=== PATIENT | female | born 1945 | race Caucasian/White ===

== ENCOUNTER 2020-12-01 13:58 | Inpatient (IN) | payer MEDICARE, MEDICAID, SELFPAY ==
[2020-12-01] VITALS (8 sets, daily range): BP systolic 121–156; BP diastolic 66–90; PULSE 74–113; RESP 16–21; TEMP 36.4–37.2; O2SAT 94–98; BMI 21.3; BMI 19.3
--- NOTE | 2020-12-01 14:31 | RAD_ITS ---
STUDY: X-RAY - PELVIS AND LEFT HIP REASON FOR EXAM: Female, 75 years old. Trauma TECHNIQUE: 3 views of the pelvis and hip. COMPARISON: None. FINDINGS: There is a non-specific bowel gas pattern. Calcified bilateral injection granulomas overlying both buttocks. Normal bilateral iliac wings, sacroiliac joints and visualized sacrum. Normal bilateral superior and inferior pubic rami. Normal pubic symphysis. Normal bilateral ischial tuberosities. There is a nondisplaced left intertrochanteric fracture. The patient is status post right intramedullary wally and screw fixation of a right intertrochanteric fracture. RAD/HIP, UNI W/ Pelvis 2-3 Views IMPRESSION: Left intertrochanteric fracture. Not displaced. Electronically Signed: Austen Delatorre MD at 15:26 EDT , Service support ,
--- NOTE | 2020-12-01 14:37 | ED.VIS.LOWEX ---
HPI History of Present Illness Chief Complaint: Lower Extremity Injury Informant: patient Occured/Mechanism Mechanism/Context: Yes blunt trauma Onset/Context/Timing Onset: Today and Hours Context: Sudden Onset Timing: Continuous Quality of Pain: Sharp Current Severity: Moderate Maximum Severity: Moderate Associated Symptoms Associated Symptoms: Negative for Parasthesia, Weakness and Loss of Funtion Narrative Narrative: 75-year-old female who tripped and fell today on the curb injuring her left hip. She is unable to bear weight. Complaining of left hip pain. She denies hitting her head. No LOC. She did hit her left elbow but said it does not cause her much pain. Prior similar symptoms: No Recent Illness/Hospitalization: No PFSH PFSH Home Medications acetaminophen 1,000 mg PO BID PRN 12/01/20 [History Last Taken 11/30/20] hydrochlorothiazide 12.5 mg PO DAILY 12/01/20 [History Last Taken 11/30/20] melatonin 24 mg PO QHS 12/01/20 [History Last Taken 11/30/20] sumatriptan succinate [Imitrex] 100 mg PO Q2H PRN 12/01/20 [History Last Taken Unknown] Allergy/AdvReac Type Severity Reaction Status Date / Time No Known Allergies Allergy Verified 12/01/20 14:51 Social History Smoking Status: Current every day smoker tobacco type: cigarettes ROS ROS ED ROS Narrative Denies recent illness. Review of Systems ROS Unobtainable: Denies due to encephalopathy Constitutional Constitutional ED: Denies fever(s) or subjective Eyes Eyes: Denies change in vision ENT ENT ED: Denies ear pain Cardiovascular Cardiovascular: Denies chest pain Respiratory/Chest Respiratory/Chest: Denies cough or dyspnea Gastrointestinal Gastrointestinal: Denies abdominal pain, diarrhea, nausea or vomiting Genitourinary Genitourinary ED: Denies dysuria Musculoskeletal Musculoskeletal: Denies myalgias Integumentary Denies rash Neurologic Neurologic: Denies headache(s) Psychiatric Psychiatric: Denies depression Endocrine Endocrinology: Denies polyuria Hematologic/Lymphatic Hematologic/Lymphatic: Denies easy bruising Allergic/Immunologic Allergic/Immunologic ED: Denies urticaria EXAM Physical Exam Narrative Exam Narrative: 75-year-old female lying in bed. Family at bedside. Vital signs stable afebrile. HEENT exam atraumatic nontender. Neck nontender trachea midline. No lymphadenopathy. Lungs are clear. Heart regular rhythm no murmur. Chest wall nontender. Abdomen soft nontender. Pelvic girdle intact. Left hip tender to palpation. Rotated and shortened. Consistent with a left hip fracture. The left lower knee and lower leg ankle foot are nontender. She is able dorsi plantar flexion left foot. She had pain with any passive range of motion of left hip. Right lower extremity unremarkable. Upper extremities are nontender normal range of motion no deformity. Minor abrasion left elbow. Back nontender. Neurologically she is awake and alert with no focal motor deficits noted obviously she does not move her left leg. Const Vital Signs: 12/01/20 13:59 12/01/20 14:52 12/01/20 15:42 Temperature 97.5 F L 97.6 F L Temperature Source Oral Oral Pulse Rate 93 96 98 Respiratory Rate 16 20 H 21 H Blood Pressure 121/82 H 138/66 H 132/70 H Blood Pressure Mean 95 90 90 Pulse Ox 96 96 95 Oxygen Delivery Method Room Air Room Air Room Air Positive well nourished and well developed; Negative for obese, cachectic, contractures or unkempt General Appearance ED: well developed; Negative for unkempt, cachectic or contractures Nutritional Appearance: Negative for cachectic or obese HEENT Reports moist mucous membranes normocephalic and atraumatic; Negative for trauma or tenderness Eyes PERRL Neck full ROM and supple Thyroid: Negative for tender Chest Wall inspection of chest normal and palpation of chest normal Resp normal respiratory effort, no retractions and clear to auscultation bilaterally Auscultation: Negative for rales, rhonchi or wheezes Cardio regular rate, regular rhythm, S1 normal heart sound, S2 normal heart sound and no murmurs GI non-tender, non-distended and no masses Auscultation: normoactive bowel sounds Palpation: soft; Negative for tender, guarding or rebound tenderness present Back/Spine no CVA tenderness General Back: Negative for CVA tenderness Cervical Spine: Negative for cervical spine tenderness Thoracic Spine / Upper Back: Negative for thoracic spinal tenderness Lumbar Spine / Lower Back: Negative for lumbar spinal tenderness Extremity Negative for full ROM Extremity Narrative: Tender left hip. Shortened and rotated. General Extremety ED: Negative for cyanosis or edema General Extremity: Negative for cyanosis or edema Neuro oriented x3 and moves all extremities Sensorium / Orientation: alert, oriented to person, oriented to place and oriented to time Motor Exam: strength 5/5 throughout Psych mental status grossly normal Appearance: Negative for unkempt Skin Skin Narrative: Minor left elbow abrasion. Nontender with full range of motion of the elbow. Lesions: no lesions Rashes: no rashes Trauma: abrasion MDM MDM MDM Narrative Medical decision making narrative: 75-year-old female fell appears to have a fracture left hip. X-rays being obtained and preop labs. Will be treated with IV morphine and Zofran. Repeat exam patient is doing well at 3:25 PM. We went over x-ray. I have the hospitalist and orthopedic physicians on page for admission. Lab Data Attestation: I reviewed the patient's lab results. Lab results narrative: CBC shows a white count 9.3. Hemoglobin 11.8 normal platelets. Electrolytes gap 9 BUN 20 creatinine 0.5 glucose 92. Labs: Laboratory Results - last 24 hr 12/01/20 12/01/20 12/01/20 14:40 14:40 14:40 WBC 9.3 RBC 4.01 L Hgb 11.8 L Hct 37.8 MCV 94.3 MCH 29.4 MCHC 31.2 L RDW Std Deviation 47.8 H RDW Coeff of Batsheva 14.0 Plt Count 352 MPV 9.5 Immature Gran % (Auto) 0.600 Neut % (Auto) 74.6 H Lymph % (Auto) 18.[address] [place] % (Auto) 5.7 Eos % (Auto) 0.0 Baso % (Auto) 0.6 Absolute Neuts (auto) 7.0 Absolute Lymphs (auto) 1.73 Nucleated RBC % 0 Sodium 143 Potassium 4.2 Chloride 110 H Carbon Dioxide 24.0 Anion Gap 9 BUN 20 H Creatinine 0.52 L Estim Creat Clear Calc 31.92 Est GFR (MDRD) Af Amer 146 Est GFR (MDRD) Non-Af 121 BUN/Creatinine Ratio 38.2 H Glucose 92 Calcium 8.1 L Blood Type Cancelled Antibody Screen Cancelled 12/01/20 15:00 WBC RBC Hgb Hct MCV MCH MCHC RDW Std Deviation RDW Coeff of Batsheva Plt Count MPV Immature Gran % (Auto) Neut % (Auto) Lymph % (Auto) [place] % (Auto) Eos % (Auto) Baso % (Auto) Absolute Neuts (auto) Absolute Lymphs (auto) Nucleated RBC % Sodium Potassium Chloride Carbon Dioxide Anion Gap BUN Creatinine Estim Creat Clear Calc Est GFR (MDRD) Af Amer Est GFR (MDRD) Non-Af BUN/Creatinine Ratio Glucose Calcium Blood Type O POSITIVE Antibody Screen NEGATIVE Radiography Diagnostic Testing: Clinical Impression(s) from Imaging Studies Hip/Pelvis X-Ray 12/01/20 14:31 IMPRESSION: Left intertrochanteric fracture. Not displaced. Electronically Signed: Austen Delatorre MD at 15:26 EDT , Service support , Chest X-Ray 12/01/20 15:13 IMPRESSION: Findings suggestive of early infiltrate in the right upper lobe. Electronically Signed: Austen Delatorre MD at 15:25 EDT , Service support , Left hip and pelvis x-ray interpreted by myself shows angulated left intertroch fracture. 3 views. Rhythm Strip Rhythm Strip: Sinus Rhythm Rate: 99 Ectopy: None EKG Initial EKG: Attestation: I personally reviewed and interpreted this EKG as follows: Interpretation: Sinus Rhythm and No Acute Injury Pattern Comments: Normal sinus rhythm rate is 99 no acute signs of ND or ischemia. Discharge Plan Dx/Rx/DC Orders Clinical Impression: Fall, Closed fracture of left hip Disposition Disposition: Acute Care Hospital [facility]
[2020-12-01] MEDS: morphine 8 MG/ML Syringe 6 MG IV ×2 (14:48→16:08)
[2020-12-01] MEDS: Ondansetron 4 MG/2 ML Vial IV ×3 (14:48→23:58)
--- NOTE | 2020-12-01 14:49 | NURSING ---
T AND S NEEDS REDRAWN. RN AWARE
[2020-12-01 14:52] LABS: Absolute Lymphocyte Count 1.73 X10^3/uL (0.83-4.51); Basophil# 0.06 X10^3/uL; Basophil% 0.6 % (0-1); Hematocrit 37.8 % (37-47); Hemoglobin 11.8 g/dL (12.0-15.0); Lymphocyte # 1.73 X10^3/ul (0.83-4.51); Lymphocyte % 18.5 % (19-41); Mean Corp Hgb Conc 31.2 g/dL (32-36); Mean Corpuscular Hgb 29.4 pg (27.0-32.0); Mean Corpuscular Volume 94.3 fL (81-99); Mean Platelet Vol. 9.5 fl (6.2-12.0); Monocyte# 0.53 X10^3/uL; Monocyte% 5.7 % (0-10); NRBC Flagged by Analyzer 0 % (0-5); Neutrophil # 6.95 X10^3/uL (2.7-7.7); Neutrophil % 74.6 % (47-70); Platelet Count 352 K/mm3 (150-450); RBC Distribution Width SD 47.8 fl (35.1-43.9); Red Blood Count 4.01 M/mm3 (4.2-5.4); White Blood Count 9.3 K/mm3 (4.4-11.0)
[2020-12-01 15:02] LABS: Anion Gap 9 (5-15); BUN 20 mg/dL (7-18); BUN/Creat Ratio 38.2 RATIO (10-20); Calcium,Total 8.1 mg/dL (8.5-10.1); Chloride 110 mmol/L (98-107); Creatinine, Serum 0.52 mg/dL (0.55-1.02); EST Glomerular Filtration Rate 121 mL/min (>60); Est Glom Filt Rate - Afr Amer 146 mL/min (>60); Estimated Creatinine Clearance 31.92 ml/min; Glucose 92 mg/dL (74-106); Potassium 4.2 mmol/L (3.5-5.1); Sodium Level 143 mmol/L (136-145)
--- NOTE | 2020-12-01 15:13 | RAD_ITS ---
STUDY: X-RAY CHEST REASON FOR EXAM: Female, 75 years old. Preoperative evaluation. TECHNIQUE: Single AP portable view of the chest. COMPARISON: None. FINDINGS: EKG electrodes are seen. A left-sided portacatheter is seen with the tip at the junction of the superior vena cava and right atrium. EKG electrodes are seen. Focal density is seen in the right lung apex. This may represent focal infiltrate. There is no demonstrated pleural abnormality. Normal size heart. Normal mediastinum and henry. Normal visualized pulmonary arteries. There is atherosclerotic calcification of the aortic arch with tortuosity. Normal visualized thoracic spine. Deformity of the proximal right humerus suggestive of a healed fracture. Surgical clips are seen in the epigastric region and mid abdomen. A filter is seen within the inferior vena cava. RAD/Chest 1 View IMPRESSION: Findings suggestive of early infiltrate in the right upper lobe. Electronically Signed: Austen Delatorre MD at 15:25 EDT , Service support ,
--- NOTE | 2020-12-01 15:24 | NURSING ---
DR COTTO PAGED HOSPISTALIST PAGED
--- NOTE | 2020-12-01 15:31 | NURSING ---
MED SURG AUDIE FALL, LT HIP FX, HX TIA
--- NOTE | 2020-12-01 15:34 | EKG12_ITS ---
Test Reason : FALL Blood Pressure : / mmHG Vent. Rate : 099 BPM Atrial Rate : 099 BPM P-R Int : 110 ms QRS Dur : 074 ms QT Int : 350 ms P-R-T Axes : 073 059 049 degrees QTc Int : 449 ms Sinus rhythm with short TX Otherwise normal ECG Confirmed by DEANNE PENG, ROBERT ([id number]), video effects editor [address] ([id number]) on 12/03/2020 9:27:46 AM Referred By: KRAIG Confirmed By:ROBERT ALICEA MD
--- NOTE | 2020-12-01 16:44 | RAD_ITS ---
STUDY: X-RAY - LEFT FEMUR REASON FOR STUDY: Female, 75 years old. Fracture, after bucks traction placed -- AP and lateral femur TECHNIQUE: 2 view(s) of the femur. COMPARISON: Comparison is made with prior examination done earlier today. FINDINGS: Nondisplaced left intertrochanteric fracture. Stable examination. Soft tissue swelling. RAD/Femur Min 2 Views IMPRESSION: Nondisplaced left intertrochanteric fracture. Soft tissue swelling. Electronically Signed: Austen Delatorre MD at 9:19 EDT , Service support ,
--- NOTE | 2020-12-01 17:37 | HP.PCM.HOS_ITS ---
HPI - General General Date of Admission: 12/01/20 Date of Service: 12/01/20 Chief Complaint: Left hip pain status post mechanical fall HPI Narrative ERIC HALL, is a 75 F who presented to [facility] on 12/01[facility]2020 with a chief complaint of left hip pain. She states that earlier today she tripped and fell on a curb injuring her left hip. Immediately afterward she was unable to bear weight and was brought to the emergency department. She denied hitting her head and had no loss of consciousness. She did hit her left elbow but indicated it did not cause her much pain and states she only has a scrape. Her vital signs in the emergency department show that she is afebrile with elevated blood pressure and tachycardia. Her respiratory rate and oxygen saturations are normal on room air. Her CBC shows a mild anemia with a hemoglobin of 11.8. Her BMP is relatively normal. X-ray showed a possible early infiltrate in the right upper lobe but patient has no respiratory symptoms at all. She does have a history of tobacco abuse however. Her EKG is unremarkable. Her hip left hip x-ray shows an intertrochanteric fracture that is nondisplaced. [facility] Medical History (Updated 12/01/20 @ 17:[address] Yael Beckford DO) Chronic edema Macular degeneration Migraine aura without headache Osteoporosis Prolapsed, intestine Tobacco abuse Home Medications acetaminophen 1,000 mg PO BID PRN 12/01/20 [History Last Taken 11/30/20] hydrochlorothiazide 12.5 mg PO DAILY 12/01/20 [History Last Taken 11/30/20] melatonin 24 mg PO QHS 12/01/20 [History Last Taken 11/30/20] sumatriptan succinate [Imitrex] 100 mg PO Q2H PRN 12/01/20 [History Last Taken Unknown] Allergy/AdvReac Type Severity Reaction Status Date / Time No Known Allergies Allergy Verified 12/01/20 14:51 Family History (Updated 12/01/20 @ 17:[address] Yael Beckford DO) Other Diabetes Heart disease Hypertension Surgical History H/O resection of stomach History of appendectomy Status post fusion of wrist Status post hip surgery Social History (Updated 12/01/20 @ 17:[address] Yael Beckford, DO) Smoking Status: Current every day smoker tobacco type: cigarettes Years smoked: 20 alcohol intake: never substance use type: does not use ROS Constitutional Constitutional: Denies anorexia, change in weight, chills, fatigue, fever(s), malaise, night sweats, weakness or other Eyes Eyes: Denies blurry vision, change in eye color, change in vision, discharge from eye(s), double vision, erythema, eye pain, loss of vision or other ENT HEENT: Denies abnormal hearing, dysphagia, ear pain, epistaxis, headache(s), hearing loss, nasal congestion, nasal discharge, post nasal drip, sinus pressure, sore throat or other Cardiovascular Cardiovascular: Denies chest pain, claudication, dyspnea on exertion, edema, lightheadedness, orthopnea, palpitations, paroxysmal nocturnal dyspnea, rapid heart rate, syncope or other Respiratory/Chest Respiratory/Chest: Denies cough, dyspnea, excessive phlegm production, hemoptysis, productive cough, shortness of breath at rest, shortness of breath with exertion, wheezing or other Gastrointestinal Gastrointestinal: Denies abdominal pain, coffee ground emesis, constipation, diarrhea, dyspepsia, hematemesis, hematochezia, loose stools, melena, nausea, vomiting or other Genitourinary Genitourinary: Denies burning urination, difficulty urinating, dysuria, hematuria, nocturia, urinary frequency, urinary hesitancy, urinary incontinence, urinary urgency or other Musculoskeletal Musculoskeletal: Reports joint pain and joint stiffness; Denies arthralgias, back pain, joint swelling, myalgias, neck pain or other Neurologic Neurologic: Denies abnormal gait, abnormal speech, confusion, disequilibrium, dizziness, focal weakness, headache(s), numbness, paresthesias, seizure-like activity, seizures, syncope, tingling, tremor(s) or other Psychiatric Psychiatric: Denies anxiety, depression, homicidal ideation, suicidal ideation or other Endocrine Endocrinology: Reports other Details: Brittle bones Hematologic/Lymphatic Hematologic/Lymphatic: Denies anemia, easy bleeding, easy bruising, lymphadenopathy or other Allergic/Immunologic Allergic/Immunologic: Denies rhinitis, hives, eczemia, asthma or other Vital Signs Vital Signs Vital Signs: 12/01/20 13:59 12/01/20 14:52 12/01/20 15:42 Temperature 97.5 F L 97.6 F L Temperature Source Oral Oral Pulse Rate 93 96 98 Respiratory Rate 16 20 H 21 H Blood Pressure 121/82 H 138/66 H 132/70 H Blood Pressure [BP] Blood Pressure Mean 95 90 90 Blood Pressure Mean [BP] Blood Pressure Source [BP] Blood Pressure Position [BP] Blood Pressure Location [BP] Pulse Ox 96 96 95 Oxygen Delivery Method Room Air Room Air Room Air 12/01/20 16:28 12/01/20 17:00 Temperature 97.6 F L Temperature Source Oral Pulse Rate 74 105 H Respiratory Rate 16 16 Blood Pressure 128/66 H Blood Pressure [BP] 156/90 H Blood Pressure Mean 86 Blood Pressure Mean [BP] 112 Blood Pressure Source [BP] Monitor Blood Pressure Position [BP] Semi-Fowlers Blood Pressure Location [BP] Right Arm Pulse Ox 94 98 Oxygen Delivery Method Room Air Room Air Weight Weight: 37.648 kg Body Mass Index (BMI) 19.3 Physical Exam Const alert, oriented x3 and no apparent distress Constitutional Narrative: Thin elderly white female who appears much older than stated age, lying in bed, appears comfortable at this time lying flat General Appearance: cooperative HEENT normocephalic, head/scalp atraumatic, hearing grossly normal bilaterally and moist oral mucous membranes HEENT Narrative: Dentures in place, Mallampati 2, no thrush Eyes PERRL, EOMs intact bilaterally and conjunctivae normal Eyes Narrative: No scleral icterus Neck no lymphadenopathy, supple, no JVD and no carotid bruits Resp normal respiratory effort, no retractions, no use of accessory muscles and clear to auscultation bilaterally Resp Narrative: Diffusely diminished but clear Auscultation: Negative for crackles, rales, rhonchi or wheezes Cardio regular rate, regular rhythm, S1 normal heart sound, S2 normal heart sound, no murmurs, no rub, no gallops, no clicks and no JVD GI normal to inspection, nondistended, normoactive bowel sounds, soft to palpation, non-tender and non-distended; Negative for hepatosplenomegaly Extremity no clubbing, cyanosis or edema Extremity Narrative: Left lower extremity is shortened and externally rotated Peripheral Pulses: Yes pulses 2+ throughout Skin skin turgor normal, no jaundice, no petechiae and no mottling Skin Narrative: Abrasion left elbow-superficial Neuro oriented x3, CN's II-XII intact bilaterally and no focal motor deficits Neuro Narrative: Moves all extremities except left lower extremity secondary to pain Sensorium / Orientation: awake, alert, oriented to person, oriented to place and oriented to time Speech: speech normal Psych affect normal Results Lab / Micro Data Attestation: I reviewed the patient's lab results. Result Diagrams: 12/01/20 14:40 12/01/20 14:40 Labs: Laboratory Results - last 24 hr 12/01/20 14:40: WBC 9.3, RBC 4.01 L, Hgb 11.8 L, Hct 37.8, MCV 94.3, MCH 29.4, MCHC 31.2 L, RDW Std Deviation 47.8 H, RDW Coeff of Batsheva 14.0, Plt Count 352, MPV 9.5, Immature Gran % (Auto) 0.600, Neut % (Auto) 74.6 H, Lymph % (Auto) 18.5 L, [place] % (Auto) 5.7, Eos % (Auto) 0.0, Baso % (Auto) 0.6, Absolute Neuts (auto) 7.0, Absolute Lymphs (auto) 1.73, Nucleated RBC % 0 12/01/20 14:40: Sodium 143, Potassium 4.2, Chloride 110 H, Carbon Dioxide 24.0, Anion Gap 9, BUN 20 H, Creatinine 0.52 L, Estim Creat Clear Calc 31.92, Est GFR (MDRD) Af Amer 146, Est GFR (MDRD) Non-Af 121, BUN/Creatinine Ratio 38.2 H, Glucose 92, Calcium 8.1 L 12/01/20 14:40: Blood Type Cancelled, Antibody Screen Cancelled 12/01/20 15:00: Blood Type O POSITIVE, Antibody Screen NEGATIVE Rhythm Strip Rhythm Strip: Sinus Rhythm Rate: 99 Ectopy: None Radiology Impression Hip/Pelvis X-Ray 12/01/20 14:31 IMPRESSION: Left intertrochanteric fracture. Not displaced. Electronically Signed: Austen Delatorre MD at 15:26 EDT , Service support , Chest X-Ray 12/01/20 15:13 IMPRESSION: Findings suggestive of early infiltrate in the right upper lobe. Electronically Signed: Austen Delatorre MD at 15:25 EDT , Service support , Assessment & Plan Assessment/Plan (1) Fall: (2) Closed fracture of left hip: (3) Anemia: PLAN: Left hip intertrochanteric fracture secondary to mechanical fall/trauma -Consult orthopedic surgery -N.p.o. after midnight -IV fluids to start at 6 AM LR at 70 cc/h -Pain management -Bowel regimen -PT/OT consultation after surgery -Check vitamin D level -Patient with a recent right hip fracture status post ORIF and patient did well postoperatively -Patient lives alone and has no family to help take care of her--> will likely need placement at discharge -Preop PT EKG shows no ST-T wave changes consistent with ischemia and a relatively normal EKG -At risk for malnutrition -P.o. intake has been for over the last couple days -Surgical risk calculator is not working at this time and will need to be calculated possibly tomorrow morning -Preop nutritional supplements Chest x-ray abnormality -Check CT of the chest--> chest x-ray is suggestive of a right upper lobe infiltrate but patient has no signs or symptoms consistent with pneumonia -Back obese history Mild anemia -Baseline hemoglobin is unknown -Hemoglobin on admission was 11.8 -Suspect some drop during admission secondary to hemodilution in surgery Chronic edema -Patient's dates she takes hydrochlorothiazide for this -Denies history of hypertension -We will hold and monitor blood pressure and volume status Insomnia -Continue melatonin History of migraine headaches -Takes Imitrex will hold at this time but could make available if headache develops DVT prophylaxis -Heparin twice daily CODE STATUS -Full code Charges/Coding Visit Charges Inpatient E&M: 52020 Init Hosp L3
[2020-12-01] MEDS: oxyCODONE 5 MG Tablet PO (18:17)
--- NOTE | 2020-12-01 18:35 | CT_ITS ---
STUDY: CT CHEST WITHOUT CONTRAST REASON FOR EXAM: Female, 75 years old. MORALES abnormality on CXR RADIATION DOSAGE (If Supplied By Facility): CTDIvol = ( 6.04 ) mGy, DLP = ( 170.66 ) mGycm TECHNIQUE: Transaxial imaging was performed without the administration of intravenous contrast material. Individualized dose optimization techniques were used for this CT. COMPARISON: None. FINDINGS: The lungs are hyperaerated. Apical scarring/atelectasis. Probable left basilar scarring/atelectasis. 7 mm lingular nodular density. There is a right upper lobe consolidation. Normal heart and pericardium. Normal mediastinum. Normal hilar regions. Normal unenhanced pulmonary arteries. Normal aorta arch and descending thoracic aorta. Exaggerated thoracic kyphosis. There is no demonstrated abnormality of the visualized upper abdomen. CT/Chest without Contrast IMPRESSION: Hyperaeration. Right upper lobe consolidation. Bilateral scarring/atelectasis. Small lingular nodular density. Electronically Signed: Jadon Hamilton DO at 20:56 EDT Tel [phone], Service support ,
[2020-12-01] MEDS: Morphine 2 MG/ML Syringe IV ×2 (20:48→23:50)
[2020-12-01] MEDS: 0.9% Saline Lock 10 ML Syringe IV ×2 (21:00→23:51)
[2020-12-01] MEDS: Heparin Injection (Vial) 5,000 UNIT/ML VIAL 5000 UNIT SC (21:06)
[2020-12-01] MEDS: MELATONIN 3 MG TABLET PO (21:38)
[2020-12-02] VITALS (15 sets, daily range): BP systolic 117–174; BP diastolic 53–96; PULSE 94–123; RESP 16–20; TEMP 36.5–37.3; O2SAT 90–100; BMI 19.3
[2020-12-02] MEDS: Morphine 2 MG/ML Syringe IV ×3 (02:42→19:59)
[2020-12-02] MEDS: 0.9% Saline Lock 10 ML Syringe IV ×2 (02:42→05:52)
[2020-12-02] MEDS: Lactated Ringers 1,000 ML 70 ML IV (05:26)
[2020-12-02] MEDS: Ondansetron 4 MG/2 ML Vial IV ×2 (05:52→16:42)
[2020-12-02 06:19] LABS: Absolute Neutrophil Count 8.8 X10^3/uL (2.0-7.7); Basophil# 0.02 X10^3/uL; Basophil% 0.2 % (0-1); Hematocrit 33.3 % (37-47); Hemoglobin 10.5 g/dL (12.0-15.0); Lymphocyte % 8.6 % (19-41); Mean Corp Hgb Conc 31.5 g/dL (32-36); Mean Corpuscular Hgb 29.7 pg (27.0-32.0); Mean Corpuscular Volume 94.3 fL (81-99); Mean Platelet Vol. 9.2 fl (6.2-12.0); Monocyte# 0.67 X10^3/uL; Monocyte% 6.4 % (0-10); NRBC Flagged by Analyzer 0 % (0-5); Neutrophil # 8.81 X10^3/uL (2.7-7.7); Neutrophil % 84.4 % (47-70); Platelet Count 323 K/mm3 (150-450); RBC Distribution Width CV 13.9 % (11.6-14.6); RBC Distribution Width SD 47.6 fl (35.1-43.9); Red Blood Count 3.53 M/mm3 (4.2-5.4); White Blood Count 10.4 K/mm3 (4.4-11.0)
[2020-12-02 06:51] LABS: Prothrombin Time (Protime)PT. 12.6 SECONDS (11.7-14.9)
[2020-12-02 06:52] LABS: ALB/GLOB Ratio 0.7 RATIO (0.9-2.4); AST(SGOT) 15 U/L (15-37); Alanine Aminotransfer ALT/SGPT 15 U/L (13-56); Albumin, Serum 2.4 g/dL (3.2-5.0); Alkaline Phosphatase 113 U/L (45-117); Anion Gap 8 (5-15); BUN 15 mg/dL (7-18); BUN/Creat Ratio 42.4 RATIO (10-20); Calcium,Total 7.9 mg/dL (8.5-10.1); Chloride 108 mmol/L (98-107); Creatinine, Serum 0.35 mg/dL (0.55-1.02); EST Glomerular Filtration Rate 190 mL/min (>60); Est Glom Filt Rate - Afr Amer 230 mL/min (>60); Estimated Creatinine Clearance 28.89 ml/min; Globulin 3.3 g/dL (2.2-4.2); Glucose 126 mg/dL (74-106); Phosphorus 3.3 mg/dL (2.5-4.9); Potassium 4.1 mmol/L (3.5-5.1); Protein, Total 5.7 g/dL (6.4-8.2); Sodium Level 141 mmol/L (136-145); Thyroid Stim Hormone (TSH) 2.08 uIU/mL (0.358-3.74)
[2020-12-02 06:52] LABS: Partial Thromboplast Time 32.2 Seconds (24.1-36.2)
--- NOTE | 2020-12-02 08:34 | NURSING ---
EVELIN Hernandez at [facility]. They provide home care to the patient. Relayed admission date and reason for admission and possible surgery. Mary states they currently have home health aids in the home 3x week but would be able to provide fci, PT and OT upon discharge if needed. her phone number is [phone]
[2020-12-02] MEDS: hydrALAZINE 20 MG/ML Vial 10 MG IV (09:07)
[2020-12-02 09:45] LABS: Vitamin D,25 Hydroxy 9.7 ng/mL
[2020-12-02] MEDS: proCHLORPERazine 10 MG/2 ML Vial 5 MG IV (10:38)
--- NOTE | 2020-12-02 11:16 | CASEMGMT ---
RN CM Assessment Introduced role of RN CM to patient. Patient is alert, oriented and able to participate in RN CM Assessment. Care providers, pharmacy, and demographics verified. Admit Dx: Left Intertrochanteric Fx Re-Admit: No Barriers/Issues: Patient lives alone. All her children and relatives are . Lack of support system. Does have friends. PCP: Charley Bennett Specialists: None Preferred Pharmacy: [facility] Insurance: [email or web address] ([email or web address]) [facility] Rx Benefit: Yes LNOK: Friend Dinora Stephen LW/HPOA: None. Patient would like to complete AD on this admission. Notified social contact worker Sommer Burns Living Arrangements: Lives alone in a [facility], 4 steps to enter home. ADL?s: Ambulate wit straight cane, Independent with dressing, cooking, managing meds and transportation-drives. Does get Meals on Wheels 3x/week. Has an Aide 3x/week to assist with house keeping and bathing through [facility] [place], Jamee [phone] (They do have Skilled PT/OT) Transportation: Patient drives. If able to get in private vehicle after surgery and time of DC- can ask a friend to take her, if not will have to have transportation arranged. DME: Straight cane, 2ww, BSC, SC x2, Hospital bed, Grab bars in bathroom. HHC: Past in July. Cannot recall agency name. SNF: Past at [facility]. In network SNF list provided with medicare star ratings. Patient states that she would like to go back to [facility] as her preference. Updated social contact worker Sommer Burns and provided two other SNF in network for patient that is in [place] as a back up to discuss with patient if [facility] unable to accept. Goal: SNF ([facility] in [place], [place]). DC PLAN: SNF. HAYLEY Pinon
--- NOTE | 2020-12-02 11:32 | PCM.PN.HOSP ---
Documented by User: Snow Jackson FABRICATION WELDER, FABRICATION WELDER-C 12/02/20 11:56 Subjective Subjective Patient seen and examined. Reports pain with movement, otherwise comfortable. Reports persistent nausea, dry heaving. Objective Data Objective Data Vital Signs: Vital Signs Temp Pulse Resp BP Pulse Ox 98.5 F 114 H 16 127/69 H 97 12/02/20 09:03 12/02/20 10:27 12/02/20 10:27 12/02/20 10:27 12/02/20 10:27 Oxygen Delivery Method Room Air Weight: 83 lb Body Mass Index (BMI) 19.3 Intake & Output: Intake and Output for Last 24 Hours 11/30/20 12/01/20 12/02/20 23:59 23:59 23:59 Intake Total 75 / 75 Output Total 200 / 200 Balance -125 / -125 Lab / Micro Data Result Diagrams: 12/02/20 06:17 12/02/20 06:17 Labs: Laboratory Results - last 24 hr 12/01/20 14:40: WBC 9.3, RBC 4.01 L, Hgb 11.8 L, Hct 37.8, MCV 94.3, MCH 29.4, MCHC 31.2 L, RDW Std Deviation 47.8 H, RDW Coeff of Batsheva 14.0, Plt Count 352, MPV 9.5, Immature Gran % (Auto) 0.600, Neut % (Auto) 74.6 H, Lymph % (Auto) 18.5 L, Page % (Auto) 5.7, Eos % (Auto) 0.0, Baso % (Auto) 0.6, Absolute Neuts (auto) 7.0, Absolute Lymphs (auto) 1.73, Nucleated RBC % 0 12/01/20 14:40: Sodium 143, Potassium 4.2, Chloride 110 H, Carbon Dioxide 24.0, Anion Gap 9, BUN 20 H, Creatinine 0.52 L, Estim Creat Clear Calc 31.92, Est GFR (MDRD) Af Amer 146, Est GFR (MDRD) Non-Af 121, BUN/Creatinine Ratio 38.2 H, Glucose 92, Calcium 8.1 L 12/01/20 14:40: Blood Type Cancelled, Antibody Screen Cancelled 12/01/20 15:00: Blood Type O POSITIVE, Antibody Screen NEGATIVE 12/02/20 06:17: WBC 10.4, RBC 3.53 L, Hgb 10.5 L, Hct 33.3 L, MCV 94.3, MCH 29.7, MCHC 31.5 L, RDW Std Deviation 47.6 H, RDW Coeff of Batsheva 13.9, Plt Count 323, MPV 9.2, Immature Gran % (Auto) 0.400, Neut % (Auto) 84.4 H, Lymph % (Auto) 8.6 L, Page % (Auto) 6.4, Eos % (Auto) 0.0, Baso % (Auto) 0.2, Absolute Neuts (auto) 8.8 H, Absolute Lymphs (auto) 0.90, Nucleated RBC % 0 12/02/20 06:17: PT Cancelled, INR Cancelled, APTT Cancelled 12/02/20 06:17: Sodium 141, Potassium 4.1, Chloride 108 H, Carbon Dioxide 25.0, Anion Gap 8, BUN 15, Creatinine 0.35 L, Estim Creat Clear Calc 28.89, Est GFR (MDRD) Af Amer 230, Est GFR (MDRD) Non-Af 190, BUN/Creatinine Ratio 42.4 H, Glucose 126 H, Calcium 7.9 L, Phosphorus 3.3, Total Bilirubin 0.30, AST 15, ALT 15, Alkaline Phosphatase 113, Total Protein 5.7 L, Albumin 2.4 L, Globulin 3.3, Albumin/Globulin Ratio 0.7 L, TSH 2.08 12/02/20 06:17: Vitamin D 25-Hydroxy 9.7 12/02/20 06:35: PT 12.6, INR 1.0, APTT 32.2 Micro: Microbiology 12/01/20 21:50 Nasal Secretion SARS-CoV-2 Antigen (Rapid) - Final Radiography Diagnostic Testing: Radiology Impression Hip/Pelvis X-Ray 12/01/20 14:31 IMPRESSION: Left intertrochanteric fracture. Not displaced. Electronically Signed: Austen Delatorre MD at 15:26 EDT , Service support , Chest X-Ray 12/01/20 15:13 IMPRESSION: Findings suggestive of early infiltrate in the right upper lobe. Electronically Signed: Austen Delatorre MD at 15:25 EDT , Service support , Femur X-Ray 12/01/20 16:44 IMPRESSION: Nondisplaced left intertrochanteric fracture. Soft tissue swelling. Electronically Signed: Austen Delatorre MD at 9:19 EDT , Service support , Chest CT 12/01/20 18:35 IMPRESSION: Hyperaeration. Right upper lobe consolidation. Bilateral scarring/atelectasis. Small lingular nodular density. Electronically Signed: Jadon Hamilton DO at 20:56 EDT Tel [phone], Service support , Rhythm Strip Rhythm Strip: Sinus Rhythm Rate: 99 Ectopy: None Physical Exam Const alert, oriented x3 and no apparent distress Orientation / Consciousness: awake, oriented to person, oriented to place and oriented to time Nutritional Appearance: cachectic HEENT normocephalic Mouth: dry mucous membranes Eyes PERRL, EOMs intact bilaterally and conjunctivae normal Neck no lymphadenopathy Resp clear to auscultation bilaterally Auscultation: diminished lung sounds Cardio regular rate, regular rhythm and no murmurs Peripheral Pulses: pulses 2+ throughout GI normal to inspection, nondistended, normoactive bowel sounds, non-tender and non-distended Extremity normal to inspection Skin no rashes or lesions noted Lesions: no lesions Rashes: no rashes Trauma: no lacerations or abrasions Neuro CN's II-XII intact bilaterally, no focal motor deficits, no sensory deficits noted and deep tendon reflexes 2+ bilaterally Psych mental status grossly normal and affect normal Assessment & Plan Assessment/Plan (1) Closed fracture of left hip: PLAN: 1. Traumatic left hip intertrochanter fracture secondary to mechanical fall-orthopedic medicine consulted. PT/OT. Will likely need SNF/rehab at discharge. Case management consult. Preoperative EKG without ST-T changes. Surgical risk calculator not working at this time however risk factors and EKG reviewed, okay to proceed with surgical invention from medical standpoint. 2. Severe protein calorie malnutrition-as evidenced by muscle loss, fat loss, cachectic appearance, 37 kg. Dietitian consult. 3. History of migraines-on as needed Imitrex. 4. Hypertension/chronic edema-on HCTZ. Hold at this time. As needed hydralazine. 5. Vitamin D deficiency/evidence of osteoporosis-initiate vitamin D 50,000 units once weekly for 6 to 8 weeks, then transition to 800 units daily. Begin calcium supplementation as well. Follow-up lab as outpatient. Recommend DXA as outpatient with likely initiation of bisphosphonate given ongoing high risk for fracture DVT prophylaxis-Heparin subcu This patient was seen by AIMEE Anders under the supervision of Dr. Ford. Documented by User: Dr. Jeovanny Ford MD 12/02/20 14:33 Objective Data Lab / Micro Data Result Diagrams: 12/02/20 06:17 12/02/20 06:17 Charges/Coding Addendum Addendum: Dr. Ford: I personally reviewed the chart and examined the patient, and agree with the above findings. 75-year-old female presents to the hospital after mechanical fall. She landed on her left side and had a left intertrochanteric femur fracture that will be repaired today. She did have a similar fracture on the right that had been repaired earlier this year. She does endorse having a history of osteoporosis and the cortical bone thickness on x-rays does appear little thin. Unsure as to why she has not been started on a bisphosphonate. We will plan to start bisphosphonate about a week after discharge. Visit Charges Inpatient E&M: 70751 Subs Hosp L2
--- NOTE | 2020-12-02 11:40 | CASEMGMT ---
Addendum entered by Sommer Leija 12/02/20 12:13: Pt is going to surgery at 12:30pm. SW in to speak with pt. SW introduced self and role at [facility]. SW informed pt that this worker has a call out to [facility] to inquire about bed availability, will keep pt updated. SW asked pt if she wanted to complete Advanced Directives before her surgery and pt states she doesn't want to complete documents at this time. SW to continue to follow. Original Note: Social Work Note SW recieved referral for both SNF placement and Advanced Directives. Pt's preferred provider is [facility] in [place]. SW placed a call to [facility] in [place] ([phone]) and was transferred to admissions but admissions had voicemail that was full. FRANCOIS placed another call back to [facility] and spoke with Mehreen and asked for admissions to call this worker back regarding referral. FRANCOIS will follow up on Advanced Directives with pt as time allows. Sommer Leija HR ASSOCIATE, MACHINERY CLEANER
--- NOTE | 2020-12-02 13:07 | PCM.CONS.GEN ---
Assessment & Plan Assessment/Plan (1) Intertrochanteric fracture of left hip: QUALIFIERS: Encounter type: initial encounter Fracture type: closed Fracture alignment: displaced Qualified Code(s): S72.142A - Displaced intertrochanteric fracture of left femur, initial encounter for closed fracture PLAN: Patient was placed in Garcia's traction and x-ray left femur taken demonstrating a transverse displaced intertrochanteric femur fracture on the left. 2 g of Ancef on-call the OR patient was medically cleared plan to proceed with left hip cephalomedullary fixation informed consent obtained from patient risk benefits and alternatives reviewed including risk of bleeding infection nerve artery tissue damage need for further surgery continued pain postoperative restrictions. HPI Consult Data Date of Consult: 12/02/20 HPI Narrative HPI Narrative: ERIC HALL, is a 75 F who presents after a ground-level fall at a restaurant stepping up onto a curb she fell onto her left side immediately had pain inability to ambulate she was taken to [facility] emergency room where x-rays demonstrated a low intertrochanteric with possible subtrochanteric extension of the left femur. She denies any other complaints of note she had recently broke her right hip and was fixed with a cephalomedullary fixation earlier this year in [place] where she resides. [facility] Medical History (Updated 12/02/20 @ 13:[address] Ignacio Quinonez DO) Chronic edema History of stress test Macular degeneration Migraine aura without headache Osteoporosis Prolapsed, intestine Tobacco abuse Home Medications acetaminophen 1,000 mg PO BID PRN 12/01/20 [History Last Taken 11/30/20] hydrochlorothiazide 12.5 mg PO DAILY 12/01/20 [History Last Taken 11/30/20] melatonin 24 mg PO QHS 12/01/20 [History Last Taken 11/30/20] sumatriptan succinate [Imitrex] 100 mg PO Q2H PRN 12/01/20 [History Last Taken Unknown] Allergy/AdvReac Type Severity Reaction Status Date / Time No Known Allergies Allergy Verified 12/01/20 14:51 Family History (Updated 12/01/20 @ 17:[address] Yael Beckford DO) Other Diabetes Heart disease Hypertension Surgical History (Updated 12/01/20 @ 21:34 by Jaylon Ruiz) H/O cardiac catheterization H/O resection of stomach H/O: hysterectomy History of appendectomy Status post fusion of wrist Status post hip surgery Social History (Updated 12/01/20 @ 17:[address] Yael Beckford, DO) Smoking Status: Current every day smoker tobacco type: cigarettes Years smoked: 20 alcohol intake: never substance use type: does not use Physical Exam Const Constitutional Narrative: Patient is awake alert in no acute distress she answers questions appropriately Extremity Extremity Narrative: There is no open wounds around the left hip there is no significant ecchymosis or swelling she is in Garcia's traction currently she has palpable pedal pulses and intact sensation light touch she is able to wiggle the toes compartments are soft in the thigh and calf. Lab / Micro Data Result Diagrams: 12/02/20 06:17 12/02/20 06:17 Labs: Laboratory Results - last 24 hr 12/01/20 14:40: WBC 9.3, RBC 4.01 L, Hgb 11.8 L, Hct 37.8, MCV 94.3, MCH 29.4, MCHC 31.2 L, RDW Std Deviation 47.8 H, RDW Coeff of Batsheva 14.0, Plt Count 352, MPV 9.5, Immature Gran % (Auto) 0.600, Neut % (Auto) 74.6 H, Lymph % (Auto) 18.5 L, [place] % (Auto) 5.7, Eos % (Auto) 0.0, Baso % (Auto) 0.6, Absolute Neuts (auto) 7.0, Absolute Lymphs (auto) 1.73, Nucleated RBC % 0 12/01/20 14:40: Sodium 143, Potassium 4.2, Chloride 110 H, Carbon Dioxide 24.0, Anion Gap 9, BUN 20 H, Creatinine 0.52 L, Estim Creat Clear Calc 31.92, Est GFR (MDRD) Af Amer 146, Est GFR (MDRD) Non-Af 121, BUN/Creatinine Ratio 38.2 H, Glucose 92, Calcium 8.1 L 12/01/20 14:40: Blood Type Cancelled, Antibody Screen Cancelled 12/01/20 15:00: Blood Type O POSITIVE, Antibody Screen NEGATIVE 12/02/20 06:17: WBC 10.4, RBC 3.53 L, Hgb 10.5 L, Hct 33.3 L, MCV 94.3, MCH 29.7, MCHC 31.5 L, RDW Std Deviation 47.6 H, RDW Coeff of Batsheva 13.9, Plt Count 323, MPV 9.2, Immature Gran % (Auto) 0.400, Neut % (Auto) 84.4 H, Lymph % (Auto) 8.6 L, [place] % (Auto) 6.4, Eos % (Auto) 0.0, Baso % (Auto) 0.2, Absolute Neuts (auto) 8.8 H, Absolute Lymphs (auto) 0.90, Nucleated RBC % 0 12/02/20 06:17: PT Cancelled, INR Cancelled, APTT Cancelled 12/02/20 06:17: Sodium 141, Potassium 4.1, Chloride 108 H, Carbon Dioxide 25.0, Anion Gap 8, BUN 15, Creatinine 0.35 L, Estim Creat Clear Calc 28.89, Est GFR (MDRD) Af Amer 230, Est GFR (MDRD) Non-Af 190, BUN/Creatinine Ratio 42.4 H, Glucose 126 H, Calcium 7.9 L, Phosphorus 3.3, Total Bilirubin 0.30, AST 15, ALT 15, Alkaline Phosphatase 113, Total Protein 5.7 L, Albumin 2.4 L, Globulin 3.3, Albumin/Globulin Ratio 0.7 L, TSH 2.08 12/02/20 06:17: Vitamin D 25-Hydroxy 9.7 12/02/20 06:35: PT 12.6, INR 1.0, APTT 32.2 Micro: Microbiology 12/01/20 21:50 Nasal Secretion SARS-CoV-2 Antigen (Rapid) - Final Rhythm Strip Rhythm Strip: Sinus Rhythm Rate: 99 Ectopy: None Radiology Impression Hip/Pelvis X-Ray 12/01/20 14:31 IMPRESSION: Left intertrochanteric fracture. Not displaced. Electronically Signed: Austen Delatorre MD at 15:26 EDT , Service support , Chest X-Ray 12/01/20 15:13 IMPRESSION: Findings suggestive of early infiltrate in the right upper lobe. Electronically Signed: Austen Delatorre MD at 15:25 EDT , Service support , Femur X-Ray 12/01/20 16:44 IMPRESSION: Nondisplaced left intertrochanteric fracture. Soft tissue swelling. Electronically Signed: Austen Delatorre MD at 9:19 EDT , Service support , Chest CT 12/01/20 18:35 IMPRESSION: Hyperaeration. Right upper lobe consolidation. Bilateral scarring/atelectasis. Small lingular nodular density. Electronically Signed: Jadon Hamilton DO at 20:56 EDT Tel [phone], Service support ,
--- NOTE | 2020-12-02 13:30 | RAD_ITS ---
STUDY: X-RAY - PELVIS AND LEFT HIP REASON FOR EXAM: Female, 75 years old. FX TECHNIQUE: 4 intraoperative fluoroscopic views of the pelvis and hip. COMPARISON: Prior day FINDINGS/ RAD/Hip 1 view with Pelvis IMPRESSION: 4 intraoperative fluoroscopic views of a ORIF left femur fracture. Demonstrate placement of an intramedullary wally. Hardware appears intact and normally aligned. The remainder the osseous structures are unremarkable. Please see operative report for further details. Electronically Signed: Pedro Luis Valdez MD at 20:07 EDT Tel , Service support ,
[2020-12-02] MEDS: Cefazolin 2 GM in 0.9% Normal Saline 100 ML IV (13:50)
[2020-12-02] MEDS: Lactated Ringers 1,000 ML 100 ML IV ×2 (14:30→23:59)
[2020-12-02] MEDS: Lidocaine 1% /Epi 1:100 (20ml) 20 ML Vial (14:50)
--- NOTE | 2020-12-02 15:05 | OP.PCM_ITS ---
Report of Operation Date of Procedure: 12/02/20 Description of Surgical Findings:: Preoperative diagnosis: Left hip low intertrochanteric femur fracture transverse fracture pattern Postoperative diagnosis: Same Procedure: Cephalo-medullary fixation left hip Implants: Synthes long nail 300mm length 130 deg 10 mm diameter 75 mm helical blade 34 mm distal screw Anesthesia: General EBL: 20 Complications: None Condition: Stable to PACU Indication for procedure: 75-year-old female patient with ground-level fall sustaining injury to hip. Fracture demonstrated the forementioned fracture pattern due to the low nature of the fracture decided to proceed with long nail, risk benefits and alternatives were reviewed including risk of bleeding infection nerve, artery, bone, tissue damage, blood clot need for further surgery and continued pain. Procedure: Patient met in the preoperative holding area once again the operative extremity was identified by both patient and physician and was marked. Patient was met by anesthesia and IV was started . patient was brought back to the to the operating room anesthesia was started. Patient was then positioned on the fracture table all bony prominences were well-padded. patient was then positioned with abduction internal rotation and traction and fluoroscopy was brought in to ensure that an adequate reduction could be performed. Patient was then prepped and draped in usual sterile fashion and timeout was called to ensure the proper patient procedure and extremity were being contemplated. Fluoroscopy was used to stiven the tip of the greater trochanter and a 3 fingerbreadth incision was made 2 finger breaths proximal to the tip of the greater trochanter. Was carried carried down through the skin and subcutaneous tissue as well as the gluteal fascia. Guidepin was then inserted through the tip of the greater trochanter directed towards the level of lesser trochanter this was checked in both AP and lateral projections. An opening reamer was performed. We then inserted the guide wally down to the superior pole the patella under fluoroscopic views we then measured and sequentially reamed to 11-1/2 diameter for a 10 mm nail this is the largest size nail and a 300 mm length following this was the insertion of the nail the appropriate height jig was used and a triple trocar sleeve was advanced to the skin and a stab incision was made at the trocar was inserted to the level of the bone and a guidepin was placed into the femoral neck and head checked on both AP and lateral projections. This was then measured and appropriately sized helical blade was inserted the nail was locked proximally the fracture was compressed and a locking screw was placed distally using perfect [place] tribe technique to allow the insertion for the transverse screw. This was then drilled and measured under fluoroscopy and the appropriate size screw was inserted. Final AP and lateral projections were saved to the PACS system of the entire construct the wounds were thoroughly irrigated the fascia was closed with #1 [id number] Vicryls followed by 2-0 Vicryl in the subcutaneous tissues followed by franco in the skin. 1% lidocaine with epinephrine was injected into the subcutaneous tissues dressing was applied form of Xeroform 4 x 4 ABD and Ioban tape. Patient tolerated procedure well there is no intraoperative complications and was brought back to the PACU in stable condition.
--- NOTE | 2020-12-02 15:15 | PCM.PN.ORT ---
Subjective Subjective Patient is awake and in no acute distress her pain is controlled Objective Data Objective Data Vital Signs: Vital Signs Temp Pulse Resp BP Pulse Ox 98.5 F 119 H 16 120/86 H 93 12/02/20 15:01 12/02/20 15:01 12/02/20 15:01 12/02/20 15:01 12/02/20 15:01 Oxygen Delivery Method Room Air Weight: 82 lb 15.994 oz Body Mass Index (BMI) 19.3 Intake & Output: Intake and Output for Last 24 Hours 11/30/20 12/01/20 12/02/20 23:59 23:59 23:59 Intake Total 75 / 75 Output Total 200 / 200 Balance -125 / -125 Lab / Micro Data Result Diagrams: 12/02/20 06:17 12/02/20 06:17 Labs: Laboratory Results - last 24 hr 12/01/20 15:00: Blood Type O POSITIVE, Antibody Screen NEGATIVE 12/02/20 06:17: WBC 10.4, RBC 3.53 L, Hgb 10.5 L, Hct 33.3 L, MCV 94.3, MCH 29.7, MCHC 31.5 L, RDW Std Deviation 47.6 H, RDW Coeff of Batsheva 13.9, Plt Count 323, MPV 9.2, Immature Gran % (Auto) 0.400, Neut % (Auto) 84.4 H, Lymph % (Auto) 8.6 L, [place] % (Auto) 6.4, Eos % (Auto) 0.0, Baso % (Auto) 0.2, Absolute Neuts (auto) 8.8 H, Absolute Lymphs (auto) 0.90, Nucleated RBC % 0 12/02/20 06:17: PT Cancelled, INR Cancelled, APTT Cancelled 12/02/20 06:17: Sodium 141, Potassium 4.1, Chloride 108 H, Carbon Dioxide 25.0, Anion Gap 8, BUN 15, Creatinine 0.35 L, Estim Creat Clear Calc 28.89, Est GFR (MDRD) Af Amer 230, Est GFR (MDRD) Non-Af 190, BUN/Creatinine Ratio 42.4 H, Glucose 126 H, Calcium 7.9 L, Phosphorus 3.3, Total Bilirubin 0.30, AST 15, ALT 15, Alkaline Phosphatase 113, Total Protein 5.7 L, Albumin 2.4 L, Globulin 3.3, Albumin/Globulin Ratio 0.7 L, TSH 2.08 12/02/20 06:17: Vitamin D 25-Hydroxy 9.7 12/02/20 06:35: PT 12.6, INR 1.0, APTT 32.2 Micro: Microbiology 12/01/20 21:50 Nasal Secretion SARS-CoV-2 Antigen (Rapid) - Final Radiography Diagnostic Testing: Radiology Impression Hip/Pelvis X-Ray 12/01/20 14:31 IMPRESSION: Left intertrochanteric fracture. Not displaced. Electronically Signed: Austen Delatorre MD at 15:26 EDT , Service support , Chest X-Ray 12/01/20 15:13 IMPRESSION: Findings suggestive of early infiltrate in the right upper lobe. Electronically Signed: Austen Delatorre MD at 15:25 EDT , Service support , Femur X-Ray 12/01/20 16:44 IMPRESSION: Nondisplaced left intertrochanteric fracture. Soft tissue swelling. Electronically Signed: Austen Delatorre MD at 9:19 EDT , Service support , Chest CT 12/01/20 18:35 IMPRESSION: Hyperaeration. Right upper lobe consolidation. Bilateral scarring/atelectasis. Small lingular nodular density. Electronically Signed: Jadon Hamilton DO at 20:56 EDT Tel [phone], Service support , Rhythm Strip Rhythm Strip: Sinus Rhythm Rate: 99 Ectopy: None Physical Exam Const no apparent distress General Appearance: cooperative Extremity Extremity Narrative: Left hip dressing clean dry and intact compartments soft neurovascular intact left lower extremity Assessment & Plan Assessment/Plan (1) Intertrochanteric fracture of left hip: QUALIFIERS: Encounter type: initial encounter Fracture type: closed Fracture alignment: displaced Qualified Code(s): S72.142A - Displaced intertrochanteric fracture of left femur, initial encounter for closed fracture PLAN: Postop day #0 left hip intertrochanteric femur fracture status post cephalomedullary fixation Eliquis 2.5 mg twice daily for 3 weeks postop beginning a.m. 12/03/2020 SCDs and thigh-high compression stockings PT OT weightbearing as tolerated Dressing to be undisturbed for 72 hours postoperatively unless seeping out then call After 72 hours dressing is to be removed patient may begin showering and cleaning with antibacterial soap and warm water pat dry and replace with dry dressing if patient has not showering daily after 72 hours the incision is to be clean daily with antibacterial soap and warm water and dressing change daily Patient is to follow-up in the office for 2 weeks for staple removal
[2020-12-02] MEDS: oxyCODONE 5 MG Tablet PO ×2 (17:45→23:57)
[2020-12-02] MEDS: Calcium Carbonate 500 MG Tablet PO (17:46)
[2020-12-02] MEDS: Ergocalciferol 1.25 MG (50, 000 UNIT) Capsule PO (17:47)
--- NOTE | 2020-12-02 19:00 | PCS.PANDOC ---
PANDEMIC DOCUMENTATION INITIATED: Date: 09/21/2020 Time: 190 Emergency documentation initiated 12/02/20 @ 1900
[2020-12-02] MEDS: Acetaminophen 325 MG Tablet 650 MG PO (23:57)
[2020-12-03 00:01] VITALS: BP 126/93; PULSE 121; RESP 18; TEMP 36.8; O2SAT 95
[2020-12-03 04:22] VITALS: BP 130/70; PULSE 115; RESP 18; TEMP 36.9; O2SAT 97
[2020-12-03] MEDS: Morphine 2 MG/ML Syringe IV (04:31)
[2020-12-03] MEDS: Ondansetron 4 MG/2 ML Vial IV ×2 (04:38→17:20)
[2020-12-03] MEDS: APIXABAN 2.5 MG TABLET PO ×2 (06:37→21:06)
[2020-12-03 07:39] LABS: Absolute Lymphocyte Count 0.88 X10^3/uL (0.83-4.51); Absolute Neutrophil Count 7.8 X10^3/uL (2.0-7.7); Basophil# 0.05 X10^3/uL; Basophil% 0.5 % (0-1); Eosinophil# 0.69 X10^3/uL; Eosinophils% 6.8 % (0-5); Hematocrit 33.2 % (37-47); Hemoglobin 10.2 g/dL (12.0-15.0); Lymphocyte # 0.88 X10^3/ul (0.83-4.51); Lymphocyte % 8.7 % (19-41); Mean Corp Hgb Conc 30.7 g/dL (32-36); Mean Corpuscular Hgb 29.3 pg (27.0-32.0); Mean Corpuscular Volume 95.4 fL (81-99); Mean Platelet Vol. 10.7 fl (6.2-12.0); Monocyte# 0.68 X10^3/uL; Monocyte% 6.7 % (0-10); NRBC Flagged by Analyzer 0 % (0-5); Neutrophil # 7.79 X10^3/uL (2.7-7.7); Neutrophil % 76.9 % (47-70); POSITIVE MORPHOLOGY YES; Platelet Count 302 K/mm3 (150-450); RBC Distribution Width CV 13.9 % (11.6-14.6); Red Blood Count 3.48 M/mm3 (4.2-5.4); White Blood Count 10.1 K/mm3 (4.4-11.0)
[2020-12-03 07:44] LABS: Differential Indicated SCAN CRITERIA MET
[2020-12-03] MEDS: Calcium Carbonate 500 MG Tablet PO ×2 (07:52→17:19)
[2020-12-03] MEDS: oxyCODONE 5 MG Tablet PO ×3 (07:54→21:13)
[2020-12-03] MEDS: Acetaminophen 325 MG Tablet 650 MG PO ×2 (07:54→21:13)
[2020-12-03 08:02] LABS: Anion Gap 9 (5-15); BUN 15 mg/dL (7-18); Calcium,Total 8.2 mg/dL (8.5-10.1); Chloride 108 mmol/L (98-107); EST Glomerular Filtration Rate 163 mL/min (>60); Est Glom Filt Rate - Afr Amer 197 mL/min (>60); Estimated Creatinine Clearance 28.89 ml/min; Glucose 118 mg/dL (74-106); Potassium 4.5 mmol/L (3.5-5.1); Sodium Level 140 mmol/L (136-145)
[2020-12-03 08:21] LABS: Differential Comment SCANNED
[2020-12-03 08:48] VITALS: O2SAT 95
--- NOTE | 2020-12-03 09:00 | CASEMGMT ---
Addendum entered by Sommer Leija 12/03/20 12:46: FRANCOIS received call from pt's friend Dinora Stephen stating she is hoping pt can discharge to [facility] as pt has been there before. FRANCOIS reviewed chart, Dinora is listed on demographics for pt. FRANCOIS updated Dinora that this worker just updated pt that she can go to [facility] when medically cleared. Dinora states understanding, thanked this worker for the update. Addendum entered by Sommer Leija 12/03/20 12:34: SW faxed PT/OT to [facility]. SW in to speak with pt. SW updated pt that [facility] is able to accept pt when medically cleared. FRANCOIS asked pt again if she wanted to complete advanced directives and pt denied. Addendum entered by Sommer Leija 12/03/20 10:42: FRANCOIS received call from George at [facility] stating they need PT/OT. FRANCOIS informed George that this worker wrote on fax coversheet that PT/OT would be faxed when available, no notes are available yet. George states that once he receives PT/OT information, they can accept pt today. George states he will need another COVID test as they need one within 24 hours of discharge. FRANCOIS updated PA. Plan: [facility] when medically cleared Addendum entered by Sommer Leija 12/03/20 09:26: FRANCOIS received message from George from [facility] in [place] stating their fax number is [phone] and states to send fax to Camille Anderson. FRANCOIS faxed referral to Camille at [facility]. Original Note: Social Work Note FRANCOIS received sheet from pt's friend that preference for SNF are 1. [facility] in [place] and 2. [facility] in [place]. FRANCOIS placed a call to [facility] Again (as they never called this worker back yesterday) and left message for George in Admissions requesting fax number. FRANCOIS waiting for call back from George. Plan: SNF pending acceptance and pre-cert Sommer Leija RUBBER TUBING SPLICER, LAMP CLEANER
[2020-12-03 10:22] VITALS: BP 134/73; PULSE 109; RESP 18; TEMP 37.1; O2SAT 94
[2020-12-03] MEDS: proCHLORPERazine 10 MG/2 ML Vial 5 MG IV (11:39)
--- NOTE | 2020-12-03 12:53 | CASEMGMT ---
Addendum entered by Sommer Leija 12/03/20 12:59: SW updated that pt is to remain at [facility] today, discharge to SNF tomorrow. SW placed a call to [facility] and left message for admissions informing them that pt is to discharge tomorrow. SW to continue to follow. Plan: [facility] when medically cleared Original Note: Social Work Note SW received call from pt's CM at [facility] [place] requesting update ([phone]). SW placed a call to pt's CM [place] and left message providing update. Sommer Leija FABRICATING MACHINE OPERATOR, KILN HEAD HOUSE OPERATOR
--- NOTE | 2020-12-03 12:56 | PCM.PN.HOSP ---
Documented by User: Dave MICHAEL 12/03/20 13:07 Subjective Subjective Patient is a 75-year-old female resting in bed, alert and orient x3. Patient reports ongoing nausea and pain after surgery, denies any chest pain or shortness of breath. Objective Data Objective Data Vital Signs: Vital Signs Temp Pulse Resp BP Pulse Ox 98.8 F 109 H 18 134/73 H 94 12/03/20 10:22 12/03/20 10:22 12/03/20 10:22 12/03/20 10:22 12/03/20 10:22 Oxygen Flow Rate (L/min) 2 Oxygen Delivery Method Room Air Weight: 82 lb 15.994 oz Body Mass Index (BMI) 19.3 Intake & Output: Intake and Output for Last 24 Hours 12/01/20 12/02/20 12/03/20 23:59 23:59 23:59 Intake Total 2373.33 / 2523.33 1450.00 / 1450.00 Output Total 500 / 1100 1300 / 1300 Balance 1873.33 / 1423.33 150.00 / 150.00 Lab / Micro Data Result Diagrams: 12/03/20 07:00 12/03/20 07:00 Labs: Laboratory Results - last 24 hr 12/03/20 07:00: WBC 10.1, RBC 3.48 L, Hgb 10.2 L, Hct 33.2 L, MCV 95.4, MCH 29.3, MCHC 30.7 L, RDW Std Deviation 49.0 H, RDW Coeff of Batsheva 13.9, Plt Count 302, MPV 10.7, Immature Gran % (Auto) 0.400, Neut % (Auto) 76.9 H, Lymph % (Auto) 8.7 L, [place] % (Auto) 6.7, Eos % (Auto) 6.8 H, Baso % (Auto) 0.5, Absolute Neuts (auto) 7.8 H, Absolute Lymphs (auto) 0.88, Nucleated RBC % 0, Differential Comment SCANNED 12/03/20 07:00: Sodium 140, Potassium 4.5, Chloride 108 H, Carbon Dioxide 23.0, Anion Gap 9, BUN 15, Creatinine 0.40 L, Estim Creat Clear Calc 28.89, Est GFR (MDRD) Af Amer 197, Est GFR (MDRD) Non-Af 163, BUN/Creatinine Ratio 37.0 H, Glucose 118 H, Calcium 8.2 L Micro: Microbiology 12/01/20 21:50 Nasal Secretion SARS-CoV-2 Antigen (Rapid) - Final Radiography Diagnostic Testing: Radiology Impression Hip/Pelvis X-Ray 12/02/20 13:30 IMPRESSION: 4 intraoperative fluoroscopic views of a ORIF left femur fracture. Demonstrate placement of an intramedullary wally. Hardware appears intact and normally aligned. The remainder the osseous structures are unremarkable. Please see operative report for further details. Electronically Signed: Pedro Luis Valdez MD at 20:07 EDT Tel , Service support , Rhythm Strip Rhythm Strip: Sinus Rhythm Rate: 99 Ectopy: None Physical Exam Const alert and oriented x3 HEENT head/scalp atraumatic and moist oral mucous membranes Head and Scalp: normocephalic Eyes PERRL, EOMs intact bilaterally and conjunctivae normal Neck no lymphadenopathy, supple and no JVD Resp normal respiratory effort, no retractions, no use of accessory muscles and clear to auscultation bilaterally Cardio regular rhythm, no murmurs and no JVD Rate: tachycardic GI normal to inspection, nondistended, normoactive bowel sounds, soft to palpation and non-tender Extremity normal to inspection, full ROM and no clubbing, cyanosis or edema Peripheral Pulses: Yes pulses 2+ throughout Skin no rashes or lesions noted, no wounds, skin turgor normal and no jaundice Neuro CN's II-XII intact bilaterally Psych affect normal Assessment & Plan Assessment/Plan (1) Intertrochanteric fracture of left hip: QUALIFIERS: Encounter type: initial encounter Fracture alignment: displaced Fracture type: closed Qualified Code(s): S72.142A - Displaced intertrochanteric fracture of left femur, initial encounter for closed fracture (2) Fall: (3) Closed fracture of left hip: (4) Anemia: PLAN: Day 2 Discharge planning: Patient to discharge to [facility] when medically ready. 1) Traumatic left hip intertrochanter fracture secondary to mechanical fall POD 1, management per orthopedics. Eliquis initiated 2.5 mg twice daily for 3 weeks. 2) Severe protein calorie malnutrition Evidenced by muscle loss, fat loss, cachectic appearance. Dietitian consult ordered. 3) History of migraines Continue Imitrex as needed. 4) Hypertension/chronic edema Patient's home hydrochlorothiazide on hold, as needed hydralazine ordered. 5) Vitamin D deficiency/evidence of osteoporosis Continue vitamin D 50,000 units once weekly for 6 to 8 weeks, then transition to 800 units daily. Begin calcium supplementation as well. Follow-up lab as outpatient. Recommend DXA as outpatient with likely initiation of bisphosphonate given ongoing high risk for fracture 6) Tachycardia Present since admission, no ST or T wave changes evident on preop EKG. Patient does not have any chest pain or shortness of breath. We will continue to monitor. DVT prophylaxis - Eliquis, as above. Patient seen by Dave Pope PA-C, under the supervision of Dr. Ford. Documented by User: Dr. Jeovanny Ford MD 12/03/20 16:31 Objective Data Lab / Micro Data Result Diagrams: 12/03/20 07:00 12/03/20 07:00 Charges/Coding Addendum Addendum: Dr. Ford: I personally reviewed the chart and examined the patient, and agree with the above findings. 75-year-old female presents to the hospital after mechanical fall. She landed on her left side and had a left intertrochanteric femur fracture that will be repaired today. She did have a similar fracture on the right that had been repaired earlier this year. She does endorse having a history of osteoporosis and the cortical bone thickness on x-rays does appear little thin. Unsure as to why she has not been started on a bisphosphonate. We will plan to start bisphosphonate about a week after discharge. 12/03/2020: Feeling better today, pain is little bit better controlled but she does have some nausea after surgery. She is doing well from physical therapy standpoint and has been accepted to SNF. If she remains stable in the morning and is doing a bit better, can plan for discharge at that time. Visit Charges Inpatient E&M: 19467 Subs Hosp L2
--- NOTE | 2020-12-03 13:35 | PN.ORTHO_ITS ---
Subjective Subjective Patient was seen and examined. Upon entering the room she was resting in bed comfortably. She states that her pain is under control. She has had a PT session which increased her pain due to increased movements, but the pain she had from PT has subsided. Denies chest pain, shortness of breath, fevers, chills. She st ates she has had some nausea from the pain medication, but they are giving her Zofran. Objective Data Objective Data Vital Signs: Vital Signs Temp Pulse Resp BP Pulse Ox 98.8 F 109 H 18 134/73 H 94 12/03/20 10:22 12/03/20 10:22 12/03/20 10:22 12/03/20 10:22 12/03/20 10:22 Oxygen Flow Rate (L/min) 2 Oxygen Delivery Method Room Air Weight: 82 lb 15.994 oz Body Mass Index (BMI) 19.3 Intake & Output: Intake and Output for Last 24 Hours 12/01/20 12/02/20 12/03/20 23:59 23:59 23:59 Intake Total 2373.33 / 2523.33 1450.00 / 1450.00 Output Total 500 / 1100 1300 / 1300 Balance 1873.33 / 1423.33 150.00 / 150.00 Lab / Micro Data Result Diagrams: 12/03/20 07:00 12/03/20 07:00 Labs: Laboratory Results - last 24 hr 12/03/20 07:00: WBC 10.1, RBC 3.48 L, Hgb 10.2 L, Hct 33.2 L, MCV 95.4, MCH 29.3, MCHC 30.7 L, RDW Std Deviation 49.0 H, RDW Coeff of Batsheva 13.9, Plt Count 302, MPV 10.7, Immature Gran % (Auto) 0.400, Neut % (Auto) 76.9 H, Lymph % (Auto) 8.7 L, [place] % (Auto) 6.7, Eos % (Auto) 6.8 H, Baso % (Auto) 0.5, Absolute Neuts (auto) 7.8 H, Absolute Lymphs (auto) 0.88, Nucleated RBC % 0, Differential Comment SCANNED 12/03/20 07:00: Sodium 140, Potassium 4.5, Chloride 108 H, Carbon Dioxide 23.0, Anion Gap 9, BUN 15, Creatinine 0.40 L, Estim Creat Clear Calc 28.89, Est GFR (MDRD) Af Amer 197, Est GFR (MDRD) Non-Af 163, BUN/Creatinine Ratio 37.0 H, Glucose 118 H, Calcium 8.2 L Micro: Microbiology 12/01/20 21:50 Nasal Secretion SARS-CoV-2 Antigen (Rapid) - Final Radiography Diagnostic Testing: Radiology Impression Hip/Pelvis X-Ray 12/02/20 13:30 IMPRESSION: 4 intraoperative fluoroscopic views of a ORIF left femur fracture. Demonstrate placement of an intramedullary wally. Hardware appears intact and normally aligned. The remainder the osseous structures are unremarkable. Please see operative report for further details. Electronically Signed: Pedro Luis Valdez MD at 20:07 EDT Tel , Service support , Rhythm Strip Rhythm Strip: Sinus Rhythm Rate: 99 Ectopy: None Physical Exam Extremity Extremity Narrative: Left hip dressing is clean, dry and intact. Able to plantarflex, dorsiflex and wiggle toes. Soft compartments. Negative Lauren's. Palpable pedal pulses. Assessment & Plan Assessment/Plan (1) Intertrochanteric fracture of left hip: QUALIFIERS: Encounter type: initial encounter Fracture type: closed Fracture alignment: displaced Qualified Code(s): S72.142A - Displaced intertrochanteric fracture of left femur, initial encounter for closed fracture PLAN: Postop day #1 left hip intertrochanteric femur fracture status post cephalomedullary fixation Eliquis 2.5 mg twice daily for 3 weeks postop beginning a.m. 12/03/2020 SCDs and thigh-high compression stockings PT/OT weightbearing as tolerated Dressing to be undisturbed for 72 hours postoperatively - unless seeping out then call our office. After 72 hours dressing is to be removed patient may begin showering and cleaning with antibacterial soap and warm water pat dry and replace with dry dressing if patient has not showering daily after 72 hours the incision is to be clean daily with antibacterial soap and warm water and dressing change daily Patient is to follow-up in the office for 2 weeks for staple removal Call the office with any questions
[2020-12-03] MEDS: Lactated Ringers 1,000 ML 70 ML IV (15:09)
[2020-12-03 16:00] VITALS: BP 146/83; PULSE 102; RESP 18; TEMP 36.8; O2SAT 95
[2020-12-03] MEDS: MELATONIN 3 MG TABLET PO (21:12)
[2020-12-03 21:18] VITALS: BP 144/77; PULSE 101; RESP 16; TEMP 37.2; O2SAT 95
[2020-12-04] VITALS (8 sets, daily range): BP systolic 119–156; BP diastolic 63–90; PULSE 92–113; RESP 16–18; TEMP 36.6–37.2; O2SAT 90–100
[2020-12-04] MEDS: oxyCODONE 5 MG Tablet PO ×3 (01:16→12:17)
[2020-12-04] MEDS: Acetaminophen 325 MG Tablet 650 MG PO ×2 (03:20→12:17)
[2020-12-04] MEDS: Lactated Ringers 1,000 ML 70 ML IV ×2 (04:35→21:05)
[2020-12-04] MEDS: Calcium Carbonate 500 MG Tablet PO (07:53)
[2020-12-04 09:34] LABS: Absolute Lymphocyte Count 0.86 X10^3/uL (0.83-4.51); Basophil# 0.02 X10^3/uL; Basophil% 0.2 % (0-1); Hemoglobin 6.8 g/dL (12.0-15.0); Lymphocyte # 0.86 X10^3/ul (0.83-4.51); Mean Corp Hgb Conc 32.4 g/dL (32-36); Mean Corpuscular Hgb 30.5 pg (27.0-32.0); Mean Corpuscular Volume 94.2 fL (81-99); Mean Platelet Vol. 9.8 fl (6.2-12.0); Monocyte# 0.63 X10^3/uL; Monocyte% 7.3 % (0-10); NRBC Flagged by Analyzer 0 % (0-5); Neutrophil # 7.03 X10^3/uL (2.7-7.7); Neutrophil % 81.6 % (47-70); Platelet Count 230 K/mm3 (150-450); RBC Distribution Width CV 14.3 % (11.6-14.6); RBC Distribution Width SD 48.9 fl (35.1-43.9); Red Blood Count 2.23 M/mm3 (4.2-5.4); White Blood Count 8.6 K/mm3 (4.4-11.0)
--- NOTE | 2020-12-04 09:38 | CASEMGMT ---
Addendum entered by Sommer Leija 12/04/20 12:07: SW faxed updated clinicals to [facility]. SW placed Green Sheet, transport forms, COVID tool on pt's chart. [facility] needs a COVID test within 24 hours of discharge. COVID test was done today. If pt doensn't discharge tomorrow, pt will need a new COVID test for Monday. Plan: [facility] when medically cleared Addendum entered by Sommer Leija 12/04/20 11:15: FRANCOIS updated that pt is now not medically ready for discharge, likely over the weekend. FRANCOIS placed a call to [facility] and left message for Camille Anderson in admissions and updated her that pt is not medically ready for discharge today now, likely over the weekend. FRANCOIS asked PA to still complete Transfer to [facility] so this worker can complete convalescent 7000 for likely weekend discharge. Plan: [facility] when medically cleared Original Note: Social Work Note Pt to discharge to [facility] today. FRANCOIS placed a call to [facility] and left message for Camille Escott in admissions letting her know pt to discharge today, will get COVID test. SW to fax discharge paperwork once completed. Plan: [facility] today skilled Sommer Leija PIANO TECHNICIAN, PATIENT RELATIONS REPRESENTATIVE
[2020-12-04 09:57] LABS: Anion Gap 8 (5-15); BUN 7 mg/dL (7-18); BUN/Creat Ratio 32.7 RATIO (10-20); Calcium,Total 7.7 mg/dL (8.5-10.1); Chloride 103 mmol/L (98-107); Creatinine, Serum 0.21 mg/dL (0.55-1.02); EST Glomerular Filtration Rate 340 mL/min (>60); Est Glom Filt Rate - Afr Amer 411 mL/min (>60); Estimated Creatinine Clearance 28.89 ml/min; Glucose 85 mg/dL (74-106); Potassium 3.4 mmol/L (3.5-5.1); Sodium Level 138 mmol/L (136-145)
--- NOTE | 2020-12-04 10:25 | PCM.PN.HOSP ---
Documented by User: Dave MICHAEL 12/04/20 10:34 Subjective Subjective Patient is a 75-year-old female comfortably resting in the chair, alert and orient x3. Patient reports significant improvement in her hip pain and nausea from yesterday. Denies development of any new symptoms overnight. Does not appear to be in acute distress. Objective Data Objective Data Vital Signs: Vital Signs Temp Pulse Resp BP Pulse Ox 98.5 F 106 H 18 136/90 H 94 12/04/20 07:49 12/04/20 07:49 12/04/20 07:49 12/04/20 07:49 12/04/20 08:03 Oxygen Flow Rate (L/min) 2 Oxygen Delivery Method Room Air Weight: 82 lb 15.994 oz Body Mass Index (BMI) 19.3 Intake & Output: Intake and Output for Last 24 Hours 12/02/20 12/03/20 12/04/20 23:59 23:59 23:59 Intake Total 2373.33 / 2523.33 1450.00 / 1450.00 940.33 / 940.33 Output Total 500 / 1100 2400 / 2400 150 / 150 Balance 1873.33 / 1423.33 -950.00 / -950.00 790.33 / 790.33 Lab / Micro Data Result Diagrams: 12/04/20 09:20 12/04/20 09:20 Labs: Laboratory Results - last 24 hr 12/04/20 09:20: WBC 8.6, RBC 2.23 L, Hgb 6.8 L, Hct 21.0 L, MCV 94.2, MCH 30.5, MCHC 32.4 D, RDW Std Deviation 48.9 H, RDW Coeff of Batsheva 14.3, Plt Count 230, MPV 9.8, Immature Gran % (Auto) 0.900, Neut % (Auto) 81.6 H, Lymph % (Auto) 10.0 L, [place] % (Auto) 7.3, Eos % (Auto) 0.0, Baso % (Auto) 0.2, Absolute Neuts (auto) 7.0, Absolute Lymphs (auto) 0.86, Nucleated RBC % 0 12/04/20 09:20: Sodium 138, Potassium 3.4 L, Chloride 103, Carbon Dioxide 27.0, Anion Gap 8, BUN 7, Creatinine 0.21 L, Estim Creat Clear Calc 28.89, Est GFR (MDRD) Af Amer 411, Est GFR (MDRD) Non-Af 340, BUN/Creatinine Ratio 32.7 H, Glucose 85, Calcium 7.7 L Micro: Microbiology 12/01/20 21:50 Nasal Secretion SARS-CoV-2 Antigen (Rapid) - Final Rhythm Strip Rhythm Strip: Sinus Rhythm Rate: 99 Ectopy: None Physical Exam Const alert, oriented x3 and no apparent distress HEENT head/scalp atraumatic and moist oral mucous membranes Head and Scalp: normocephalic Eyes PERRL, EOMs intact bilaterally and conjunctivae normal Neck no lymphadenopathy, supple and no JVD Resp normal respiratory effort, no retractions, no use of accessory muscles and clear to auscultation bilaterally Cardio regular rate, regular rhythm, no murmurs and no JVD GI normal to inspection, nondistended, normoactive bowel sounds, soft to palpation and non-tender Extremity normal to inspection, full ROM and no clubbing, cyanosis or edema Skin no rashes or lesions noted, no wounds, skin turgor normal and no jaundice Neuro CN's II-XII intact bilaterally Psych affect normal Assessment & Plan Assessment/Plan (1) Intertrochanteric fracture of left hip: QUALIFIERS: Encounter type: initial encounter Fracture alignment: displaced Fracture type: closed Qualified Code(s): S72.142A - Displaced intertrochanteric fracture of left femur, initial encounter for closed fracture (2) Fall: (3) Closed fracture of left hip: (4) Anemia: PLAN: Day 3 Discharge planning: Patient to discharge to [facility] when medically ready. 1) Traumatic left hip intertrochanter fracture secondary to mechanical fall POD 2, management per orthopedics. Eliquis initiated 2.5 mg twice daily for 3 weeks. 2) Normocytic anemia Hemoglobin currently 6.8. No obvious source of bleed or mention of significant blood loss from surgery. Will transfuse 1 unit of PRBC's and continue to moitor CBC. 2) Severe protein calorie malnutrition Evidenced by muscle loss, fat loss, cachectic appearance. Dietitian consult ordered. 3) History of migraines Continue Imitrex as needed. 4) Hypertension/chronic edema Patient's home hydrochlorothiazide on hold, as needed hydralazine ordered. 5) Vitamin D deficiency/evidence of osteoporosis Continue vitamin D 50,000 units once weekly for 6 to 8 weeks, then transition to 800 units daily. Begin calcium supplementation as well. Follow-up lab as outpatient. Recommend DXA as outpatient with likely initiation of bisphosphonate given ongoing high risk for fracture 6) Tachycardia Present since admission, no ST or T wave changes evident on preop EKG. Patient does not have any chest pain or shortness of breath. We will continue to monitor. DVT prophylaxis - Eliquis, as above. Patient seen by Dave Pope PA-C, under the supervision of Dr. Ford. Documented by User: Dr. Jeovanny Ford MD 12/04/20 18:02 Objective Data Lab / Micro Data Result Diagrams: 12/04/20 09:20 12/04/20 09:20 Charges/Coding Addendum Addendum: Dr. Ford: I personally reviewed the chart and examined the patient, and agree with the above findings. 75-year-old female presents to the hospital after mechanical fall. She landed on her left side and had a left intertrochanteric femur fracture that will be repaired today. She did have a similar fracture on the right that had been repaired earlier this year. She does endorse having a history of osteoporosis and the cortical bone thickness on x-rays does appear little thin. Unsure as to why she has not been started on a bisphosphonate. We will plan to start bisphosphonate about a week after discharge. 12/03/2020: Feeling better today, pain is little bit better controlled but she does have some nausea after surgery. She is doing well from physical therapy standpoint and has been accepted to SNF. If she remains stable in the morning and is doing a bit better, can plan for discharge at that time. 12/04/2020: Doing well today, pain is better controlled however she is little bit pale and she was found to have a hemoglobin of 6.8. Will transfuse 1 unit and monitor, will recheck hemoglobin this evening and then again tomorrow morning. Continue with PT/OT. Discharge plan is for SNF. Visit Charges Inpatient E&M: 24688 Subs Hosp L2
[2020-12-04] MEDS: APIXABAN 2.5 MG TABLET PO ×2 (10:51→21:02)
[2020-12-04] MEDS: 0.9% Saline Lock 10 ML Syringe IV (12:22)
[2020-12-04] MEDS: Ondansetron 4 MG/2 ML Vial IV ×2 (12:22→23:28)
--- NOTE | 2020-12-04 13:06 | NURSING ---
pt drowsy, 2lnc added for comfort related to low HH/drowsiness. 90% on RA,
--- NOTE | 2020-12-04 14:47 | NURSING ---
blood flushing with NS
--- NOTE | 2020-12-04 17:05 | CASEMGMT ---
Social Work Note FRANCOIS received call from Camille at [facility] stating pt can discharge to SNF Monday. Camille states that due to staffing, they are not able to accept pt tomorrow. Camille states pt will need a COVID test on day of discharge. FRANCOIS updated PA that pt can only discharge to SNF Monday. Plan: [facility] skilled under convalescent level of care Monday *Pt will need COVID test on day of discharge. Sommer Leija IRON MELTER, MUCK MINER BLASTING
[2020-12-04 19:53] LABS: Hematocrit 24.6 % (37-47)
[2020-12-05] MEDS: oxyCODONE 5 MG Tablet PO ×5 (00:01→21:09)
[2020-12-05 03:07] VITALS: BP 142/94; PULSE 95; RESP 16; TEMP 37.2; O2SAT 95
[2020-12-05] MEDS: Acetaminophen 325 MG Tablet 650 MG PO ×3 (06:17→16:44)
[2020-12-05 06:45] LABS: Absolute Lymphocyte Count 0.82 X10^3/uL (0.83-4.51); Absolute Neutrophil Count 6.5 X10^3/uL (2.0-7.7); Basophil# 0.03 X10^3/uL; Basophil% 0.4 % (0-1); Hematocrit 25.7 % (37-47); Hemoglobin 8.5 g/dL (12.0-15.0); Lymphocyte # 0.82 X10^3/ul (0.83-4.51); Lymphocyte % 10.2 % (19-41); Mean Corp Hgb Conc 33.1 g/dL (32-36); Mean Corpuscular Hgb 30.2 pg (27.0-32.0); Mean Corpuscular Volume 91.5 fL (81-99); Mean Platelet Vol. 9.6 fl (6.2-12.0); Monocyte# 0.64 X10^3/uL; NRBC Flagged by Analyzer 0.5 % (0-5); Neutrophil # 6.46 X10^3/uL (2.7-7.7); Neutrophil % 80.5 % (47-70); Platelet Count 224 K/mm3 (150-450); RBC Distribution Width CV 15.9 % (11.6-14.6); RBC Distribution Width SD 53.3 fl (35.1-43.9); Red Blood Count 2.81 M/mm3 (4.2-5.4)
[2020-12-05 07:10] LABS: Anion Gap 6 (5-15); BUN 7 mg/dL (7-18); BUN/Creat Ratio 28.8 RATIO (10-20); Calcium,Total 7.6 mg/dL (8.5-10.1); Chloride 106 mmol/L (98-107); Creatinine, Serum 0.24 mg/dL (0.55-1.02); EST Glomerular Filtration Rate 294 mL/min (>60); Est Glom Filt Rate - Afr Amer 355 mL/min (>60); Estimated Creatinine Clearance 28.89 ml/min; Glucose 85 mg/dL (74-106); Potassium 3.2 mmol/L (3.5-5.1); Sodium Level 142 mmol/L (136-145)
[2020-12-05 09:01] VITALS: BP 144/71; PULSE 97; RESP 16; TEMP 36.9; O2SAT 94
[2020-12-05] MEDS: APIXABAN 2.5 MG TABLET PO ×2 (10:23→21:09)
[2020-12-05] MEDS: Potassium Chloride Oral Tablet 20 MEQ 40 MEQ PO (10:23)
[2020-12-05] MEDS: Calcium Carbonate 500 MG Tablet PO ×2 (10:23→17:06)
[2020-12-05] MEDS: Lactated Ringers 1,000 ML 70 ML IV (10:24)
[2020-12-05] MEDS: Ondansetron 4 MG/2 ML Vial IV (10:30)
--- NOTE | 2020-12-05 11:01 | PCM.PN.HOSP ---
Documented by User: Dave MICHAEL 12/05/20 11:09 Subjective Subjective Patient is a 75-year-old female comfortably resting in bed, alert and orient x3. Patient denies development of any new symptoms overnight. Denies chest pain, shortness of breath, palpitations, hemoptysis, sputum production, fever, chills, N/V/D. Objective Data Objective Data Vital Signs: Vital Signs Temp Pulse Resp BP Pulse Ox 98.4 F 97 16 144/71 H 94 12/05/20 09:01 12/05/20 09:01 12/05/20 09:01 12/05/20 09:01 12/05/20 09:01 Oxygen Flow Rate (L/min) 1.5 Oxygen Delivery Method Nasal Cannula Weight: 82 lb 15.994 oz Body Mass Index (BMI) 19.3 Intake & Output: Intake and Output for Last 24 Hours 12/03/20 12/04/20 12/05/20 23:59 23:59 23:59 Intake Total 1450.00 / 1450.00 2580.33 / 2880.33 1432.17 / 1432.17 Output Total 2400 / 2400 550 / 1350 1000 / 1000 Balance -950.00 / -950.00 2030.33 / 1530.33 432.17 / 432.17 Lab / Micro Data Result Diagrams: 12/05/20 06:35 12/05/20 06:35 Labs: Laboratory Results - last 24 hr 12/01/20 15:00: Crossmatch See Detail 12/04/20 19:43: Hgb 8.0 L, Hct 24.6 L 12/05/20 06:35: WBC 8.0, RBC 2.81 L, Hgb 8.5 L, Hct 25.7 L, MCV 91.5, MCH 30.2, MCHC 33.1, RDW Std Deviation 53.3 H, RDW Coeff of Batsheva 15.9 H, Plt Count 224, MPV 9.6, Immature Gran % (Auto) 0.900, Neut % (Auto) 80.5 H, Lymph % (Auto) 10.2 L, Gentry % (Auto) 8.0, Eos % (Auto) 0.0, Baso % (Auto) 0.4, Absolute Neuts (auto) 6.5, Absolute Lymphs (auto) 0.82 L, Nucleated RBC % 0.5 12/05/20 06:35: Sodium 142, Potassium 3.2 L, Chloride 106, Carbon Dioxide 30.0, Anion Gap 6, BUN 7, Creatinine 0.24 L, Estim Creat Clear Calc 28.89, Est GFR (MDRD) Af Amer 355, Est GFR (MDRD) Non-Af 294, BUN/Creatinine Ratio 28.8 H, Glucose 85, Calcium 7.6 L Micro: Microbiology 12/04/20 10:56 Nasal Secretion SARS-CoV-2 Antigen (Rapid) - Final 12/01/20 21:50 Nasal Secretion SARS-CoV-2 Antigen (Rapid) - Final Rhythm Strip Rhythm Strip: Sinus Rhythm Rate: 99 Ectopy: None Physical Exam Const alert, oriented x3 and no apparent distress HEENT head/scalp atraumatic and moist oral mucous membranes Head and Scalp: normocephalic Eyes PERRL, EOMs intact bilaterally and conjunctivae normal Neck no lymphadenopathy, supple and no JVD Resp normal respiratory effort, no retractions, no use of accessory muscles and clear to auscultation bilaterally Cardio regular rate, regular rhythm, no murmurs and no JVD GI normal to inspection, nondistended, normoactive bowel sounds, soft to palpation and non-tender Extremity normal to inspection, full ROM and no clubbing, cyanosis or edema Peripheral Pulses: Yes pulses 2+ throughout Skin no rashes or lesions noted, no wounds, skin turgor normal and no jaundice Neuro CN's II-XII intact bilaterally Psych affect normal Assessment & Plan Assessment/Plan (1) Intertrochanteric fracture of left hip: QUALIFIERS: Encounter type: initial encounter Fracture alignment: displaced Fracture type: closed Qualified Code(s): S72.142A - Displaced intertrochanteric fracture of left femur, initial encounter for closed fracture (2) Fall: (3) Closed fracture of left hip: (4) Anemia: PLAN: Day 4 Discharge planning: Patient to discharge to [facility] on 12/06/2020. Is medically ready to go today, however [facility] does not have appropriate staff to take patient today and request discharge tomorrow. 1) Traumatic left hip intertrochanter fracture secondary to mechanical fall POD 2, management per orthopedics. Eliquis initiated 2.5 mg twice daily for 3 weeks. 2) Normocytic anemia Hemoglobin currently 8.5. 1 unit of PRBCs transfused on 12/04. We will continue to monitor. 2) Severe protein calorie malnutrition Evidenced by muscle loss, fat loss, cachectic appearance. Dietitian consult ordered. 3) History of migraines Continue Imitrex as needed. 4) Hypertension/chronic edema Patient's home hydrochlorothiazide on hold, as needed hydralazine ordered. 5) Vitamin D deficiency/evidence of osteoporosis Continue vitamin D 50,000 units once weekly for 6 to 8 weeks, then transition to 800 units daily. Begin calcium supplementation as well. Follow-up lab as outpatient. Recommend DXA as outpatient with likely initiation of bisphosphonate given ongoing high risk for fracture 6) Tachycardia Present since admission, no ST or T wave changes evident on preop EKG. Patient does not have any chest pain or shortness of breath. We will continue to monitor. DVT prophylaxis - Eliquis, as above. Patient seen by Dave Pope PA-C, under the supervision of Dr. Ford. Documented by User: Dr. Jeovanny Ford MD 12/05/20 12:30 Objective Data Lab / Micro Data Result Diagrams: 12/05/20 06:35 12/05/20 06:35 Charges/Coding Addendum Addendum: Dr. Ford: I personally reviewed the chart and examined the patient, and agree with the above findings. 75-year-old female presents to the hospital after mechanical fall. She landed on her left side and had a left intertrochanteric femur fracture that will be repaired today. She did have a similar fracture on the right that had been repaired earlier this year. She does endorse having a history of osteoporosis and the cortical bone thickness on x-rays does appear little thin. Unsure as to why she has not been started on a bisphosphonate. We will plan to start bisphosphonate about a week after discharge. 12/03/2020: Feeling better today, pain is little bit better controlled but she does have some nausea after surgery. She is doing well from physical therapy standpoint and has been accepted to SNF. If she remains stable in the morning and is doing a bit better, can plan for discharge at that time. 12/04/2020: Doing well today, pain is better controlled however she is little bit pale and she was found to have a hemoglobin of 6.8. Will transfuse 1 unit and monitor, will recheck hemoglobin this evening and then again tomorrow morning. Continue with PT/OT. Discharge plan is for SNF. 12/05/2020: Doing well today, hemoglobin is stable. She will need to be discharged tomorrow morning once a statin at the SNF is better but she will go tomorrow. I do recommend that she is on a bisphosphonate in about a week for her osteoporosis. We will also continue with her Eliquis for duration recommended by orthopedic surgery. She will need to follow-up with them in about 2 weeks. Visit Charges Inpatient E&M: 76865 Subs Hosp L2
[2020-12-05 16:06] VITALS: BP 150/68; PULSE 100; RESP 16; TEMP 37.3; O2SAT 94
--- NOTE | 2020-12-05 16:06 | CASEMGMT ---
Addendum entered by Sarika Arceo 12/05/20 19:04: FRANCOIS spoke to FERNANDA and he will enter transfer summary. FRANCOIS attached it to the HENS. No further SW needs at this time. Sarika EVANS Original Note: FRANCOIS Note FRANCOIS reviewed chart. PA has not completed Transfer to [facility]. FRANCOIS texted Dave MICHAEL and requested this information and provided call back phone number. Sarika EVANS
--- NOTE | 2020-12-05 16:10 | PCM.TXEXTCAR ---
Documented by User: Dave MICHAEL 12/06/20 10:55 Diet 12/02/20 17:08 Diet: Regular - General Type of Dietary Supplement:: Ensure Enlive Is pt able to select menu?: Yes Wound(s) left elbow: Wound Type: Abrasion L HIP: Wound Type: Surgical Incision Therapies Physical Therapy: Eval and Treat Occupational Therapy: Eval and Treat Problem/Diagnosis (1) Intertrochanteric fracture of left hip: Status: Acute (2) Fall: Status: Acute (3) Closed fracture of left hip: Status: Acute (4) Anemia: Status: Acute Allergies/Procedures Done in Hospital Allergies No Known Allergies Allergy (Verified 12/01/20 14:51) Type of Care/Length of Stay Estimated LOS: Convalescent Care Less Than 30 days Type of Care Needed: Skilled Rehab Potential: Good Prognosis: Good Additional Orders/Day of Discharge Day of Discharge: 12/06/20 Dietary and Speech Recommendations Dietitian Recommendations/Changes: continue regular diet as tolerated- pt refuses ONS Discharge Plan Admission Admit Date/Time: 12/01/20 15:27 Primary Reason for Your Visit: Fall + left hip fracture Attending Provider: Jeovanny Ford Consulting Providers: Ignacio Quinonez Discharge Orders/Prescriptions Prescriptions: New prednisone 20 mg tablet 40 mg PO DAILY Qty: 10 RF: 0 Eliquis 2.5 mg tablet 2.5 mg PO BID Qty: 36 RF: 0 Continued sumatriptan succinate [Imitrex] 100 mg Tablet 100 mg PO Q2H PRN (Reason: MIGRAINE) RF: 0 hydrochlorothiazide 12.5 mg Tablet 12.5 mg PO DAILY RF: 0 acetaminophen 500 mg Tablet 1,000 mg PO BID PRN (Reason: HIP PAIN) RF: 0 melatonin 12 mg Tablet 24 mg PO QHS RF: 0 Referrals / Follow Up: JOSE MCCARTNEY [Other] - Within 2 Weeks Ignacio Quinonez DO [STAFF PHYSICIAN] - Within 2 Weeks Disposition Disposition (needs filled in before D/C Order can be placed): Home, Self Care Documented by User: Dr. Jeovanny Ford MD 12/06/20 11:01 Allergies/Procedures Done in Hospital Allergies No Known Allergies Allergy (Verified 12/01/20 14:51) Discharge Plan Admission Admit Date/Time: 12/01/20 15:27 Primary Reason for Your Visit: Fall + left hip fracture Attending Provider: Jeovanny Ford Consulting Providers: Ignacio Quinonez Discharge Orders/Prescriptions Prescriptions: New prednisone 20 mg tablet 40 mg PO DAILY Qty: 10 RF: 0 Eliquis 2.5 mg tablet 2.5 mg PO BID Qty: 36 RF: 0 Continued sumatriptan succinate [Imitrex] 100 mg Tablet 100 mg PO Q2H PRN (Reason: MIGRAINE) RF: 0 hydrochlorothiazide 12.5 mg Tablet 12.5 mg PO DAILY RF: 0 acetaminophen 500 mg Tablet 1,000 mg PO BID PRN (Reason: HIP PAIN) RF: 0 melatonin 12 mg Tablet 24 mg PO QHS RF: 0 Referrals / Follow Up: JOSE MCCARTNEY [Other] - Within 2 Weeks Ignacio Quinonez DO [STAFF PHYSICIAN] - Within 2 Weeks Disposition Disposition (needs filled in before D/C Order can be placed): Home, Self Care
--- NOTE | 2020-12-05 18:24 | RAD_ITS ---
STUDY: X-RAY - LEFT TIBIA AND FIBULA REASON FOR EXAM: Female, 75 years old. LUNCH TRAY FELL OFF STAND AND ONTO HER LEFT LEG TECHNIQUE: 2 view(s) of the tibia and fibula were obtained. COMPARISON: None. FINDINGS: There is demineralization of the tibia. There is demineralization of the fibula. The soft tissue structures are unremarkable. RAD/Tibia & Fibula 2 Views IMPRESSION: No demonstrated fracture or malalignment. Electronically Signed: Johnny Pagan MD ([place]) at 22:58 EDT , Service support ,
[2020-12-05 19:48] VITALS: BP 110/76; PULSE 99; RESP 18; TEMP 36.8; O2SAT 97
[2020-12-05 19:52] VITALS: RESP 18
[2020-12-05] MEDS: MELATONIN 3 MG TABLET PO (21:09)
[2020-12-05] MEDS: 0.9% Saline Lock 10 ML Syringe IV (21:11)
[2020-12-06 02:17] VITALS: RESP 18
[2020-12-06 02:23] VITALS: BP 132/83; PULSE 96; RESP 18; TEMP 37; O2SAT 98
[2020-12-06] MEDS: Acetaminophen 325 MG Tablet 650 MG PO ×2 (02:26→13:05)
[2020-12-06] MEDS: oxyCODONE 5 MG Tablet PO ×2 (02:27→13:05)
[2020-12-06 06:36] VITALS: BP 136/68; PULSE 88; RESP 16; TEMP 36.7; O2SAT 97
[2020-12-06] MEDS: 0.9% Saline Lock 10 ML Syringe IV ×3 (06:46→13:10)
[2020-12-06 08:41] LABS: Hematocrit 27.4 % (37-47); Hemoglobin 8.7 g/dL (12.0-15.0)
[2020-12-06 09:06] LABS: Anion Gap 4 (5-15); BUN 7 mg/dL (7-18); BUN/Creat Ratio 26.9 RATIO (10-20); Chloride 106 mmol/L (98-107); Creatinine, Serum 0.26 mg/dL (0.55-1.02); EST Glomerular Filtration Rate 272 mL/min (>60); Est Glom Filt Rate - Afr Amer 329 mL/min (>60); Estimated Creatinine Clearance 28.89 ml/min; Glucose 104 mg/dL (74-106); Potassium 3.8 mmol/L (3.5-5.1); Sodium Level 141 mmol/L (136-145)
[2020-12-06 10:35] VITALS: BP 116/68; PULSE 102; RESP 16; TEMP 36.8; O2SAT 93
[2020-12-06] MEDS: Calcium Carbonate 500 MG Tablet PO (10:35)
[2020-12-06] MEDS: APIXABAN 2.5 MG TABLET PO (10:36)
[2020-12-06 12:15] VITALS: O2SAT 93
--- NOTE | 2020-12-06 12:35 | NURSING ---
Report called to [facility] at [facility].
[2020-12-06 13:14] VITALS: BP 140/86; PULSE 96; RESP 18; TEMP 36.9; O2SAT 95
--- NOTE | 2020-12-06 13:20 | PCM.DC.SUM ---
Documented by User: Dave MICHAEL 12/06/20 13:23 Providers Date of Admission: 12/01/20 Primary Care Physician: JOSE MCCARTNEY Consultations 12/01/20 16:43 Consult: Orthopedics Routine Consulting Provider: Ignacio Quinonez Reason for Consult: L intertrochanteric fracture EMERGENT Consult: No MD Notified: Yes Date Notified: 12/01/20 Time Notified: 16:44 Method of Notification: Page Reason For Visit: LEFT INTERTROCHANTERIC FRACTURE Diagnosis Discharge Diagnosis (1) Intertrochanteric fracture of left hip: Status: Acute Code(s): S72.142A - Displaced intertrochanteric fracture of left femur, initial encounter for closed fracture Qualifiers: Encounter type: initial encounter Fracture alignment: displaced Fracture type: closed Qualified Code(s): S72.142A - Displaced intertrochanteric fracture of left femur, initial encounter for closed fracture (2) Fall: Status: Acute Code(s): W19.XXXA - Unspecified fall, initial encounter (3) Closed fracture of left hip: Status: Acute Code(s): S72.002A - Fracture of unspecified part of neck of left femur, initial encounter for closed fracture (4) Anemia: Status: Acute Code(s): D64.9 - Anemia, unspecified Medications at Discharge Home Medications acetaminophen 1,000 mg PO BID PRN 12/01/20 hydrochlorothiazide 12.5 mg PO DAILY 12/01/20 melatonin 24 mg PO QHS 12/01/20 sumatriptan succinate [Imitrex] 100 mg PO Q2H PRN 12/01/20 apixaban [Eliquis] 2.5 mg PO BID #36 tab 12/06/20 prednisone 40 mg PO DAILY #10 tab 12/06/20 Hospital Course Summary of Care Provided Minutes Spent on Discharge: 35 Hospital Course: Disposition: Patient to be discharged to [facility] [place] in [place] for ongoing therapy. 1) Traumatic left hip intertrochanter fracture secondary to mechanical fall POD 3, management per orthopedics. Eliquis initiated 2.5 mg twice daily for 3 weeks. Patient is to follow-up with orthopedic surgeon within the next 2 weeks. Patient is to follow-up with primary care provider within the next 2 weeks. 2) Normocytic anemia Stable, currently 8.7. Was transfused 1 unit of PRBCs on 12/04, and hemoglobin has steadily been increasing since transfusion. 2) Severe protein calorie malnutrition Evidenced by muscle loss, fat loss, cachectic appearance. Dietitian consult ordered. To be discharged to a assisted for follow-up care. 3) History of migraines Continue Imitrex as needed. 4) Hypertension/chronic edema Continue hydrochlorothiazide. 5) Vitamin D deficiency/evidence of osteoporosis Continue vitamin D 50,000 units once weekly for 6 to 8 weeks, then transition to 800 units daily. Begin calcium supplementation as well. Follow-up lab as outpatient. Recommend DXA as outpatient with likely initiation of bisphosphonate given ongoing high risk for fracture 6) Tachycardia Present since admission, no ST or T wave changes evident on preop EKG. Patient does not have any chest pain or shortness of breath. We will continue to monitor. Patient seen by Dave Pope PA-C, under the supervision of Dr. Ford. Physical Exam Narrative Patient is a 75-year-old female comfortably resting in bed, alert and orient x3. Patient reports pain is controlled on current pain regimen. Denies development of any new symptoms overnight. Does not appear to be in acute distress and is ready to be discharged. Const alert, oriented x3 and no apparent distress HEENT normocephalic, head/scalp atraumatic and hearing grossly normal bilaterally Eyes PERRL, EOMs intact bilaterally and conjunctivae normal Neck no lymphadenopathy, supple and no JVD Resp normal respiratory effort, no retractions, no use of accessory muscles and clear to auscultation bilaterally Cardio regular rate, regular rhythm, no murmurs and no JVD GI normal to inspection, nondistended, normoactive bowel sounds, soft to palpation and non-tender Extremity normal to inspection, full ROM and no clubbing, cyanosis or edema Skin no rashes or lesions noted, no wounds and skin turgor normal Neuro CN's II-XII intact bilaterally Psych affect normal Weight / BMI Weight Weight: 82 lb 15.994 oz Body Mass Index (BMI) 19.3 ABG / Lab / Microbiology Data Result Diagrams: 12/06/20 08:30 12/06/20 08:30 Laboratory: Laboratory Results - last 24 hr 12/06/20 08:30: Hgb 8.7 L, Hct 27.4 L 12/06/20 08:30: Sodium 141, Potassium 3.8, Chloride 106, Carbon Dioxide 31.0, Anion Gap 4 L, BUN 7, Creatinine 0.26 L, Estim Creat Clear Calc 28.89, Est GFR (MDRD) Af Amer 329, Est GFR (MDRD) Non-Af 272, BUN/Creatinine Ratio 26.9 H, Glucose 104, Calcium 8.0 L Microbiology: Microbiology 12/06/20 09:20 Nasal Secretion SARS-CoV-2 Antigen (Rapid) - Final 12/04/20 10:56 Nasal Secretion SARS-CoV-2 Antigen (Rapid) - Final 12/01/20 21:50 Nasal Secretion SARS-CoV-2 Antigen (Rapid) - Final Radiography Diagnostic Testing: Radiology Impression Tibia/Fibula X-Ray 12/05/20 18:24 IMPRESSION: No demonstrated fracture or malalignment. Electronically Signed: Johnny Pagan MD ([place]) at 22:58 EDT , Service support , Meaningful Use Info Meaningful Use Diagnoses (Choose all that apply): None applicable Discharge Plan Admission Admit Date/Time: 12/01/20 15:27 Primary Reason for Your Visit: Fall + left hip fracture Attending Provider: Jeovanny Ford Consulting Providers: Ignacio Quinonez Discharge Orders/Prescriptions Prescriptions: New prednisone 20 mg tablet 40 mg PO DAILY Qty: 10 RF: 0 Eliquis 2.5 mg tablet 2.5 mg PO BID Qty: 36 RF: 0 Continued sumatriptan succinate [Imitrex] 100 mg Tablet 100 mg PO Q2H PRN (Reason: MIGRAINE) RF: 0 hydrochlorothiazide 12.5 mg Tablet 12.5 mg PO DAILY RF: 0 acetaminophen 500 mg Tablet 1,000 mg PO BID PRN (Reason: HIP PAIN) RF: 0 melatonin 12 mg Tablet 24 mg PO QHS RF: 0 Referrals / Follow Up: JOSE MCCARTNEY [Other] - Within 2 Weeks Ignacio Quinonez DO [STAFF PHYSICIAN] - Within 2 Weeks Disposition Disposition (needs filled in before D/C Order can be placed): Home, Self Care Documented by User: Dr. Jeovanny Ford MD 12/06/20 13:51 Providers Date of Admission: 12/01/20 Reason For Visit: LEFT INTERTROCHANTERIC FRACTURE Medications at Discharge Home Medications acetaminophen 1,000 mg PO BID PRN 12/01/20 hydrochlorothiazide 12.5 mg PO DAILY 12/01/20 melatonin 24 mg PO QHS 12/01/20 sumatriptan succinate [Imitrex] 100 mg PO Q2H PRN 12/01/20 apixaban [Eliquis] 2.5 mg PO BID #36 tab 12/06/20 prednisone 40 mg PO DAILY #10 tab 12/06/20 ABG / Lab / Microbiology Data Result Diagrams: 12/06/20 08:30 12/06/20 08:30 Discharge Plan Admission Admit Date/Time: 12/01/20 15:27 Primary Reason for Your Visit: Fall + left hip fracture Attending Provider: Jeovanny Ford Consulting Providers: Ignacio Quinonez Discharge Orders/Prescriptions Prescriptions: New prednisone 20 mg tablet 40 mg PO DAILY Qty: 10 RF: 0 Eliquis 2.5 mg tablet 2.5 mg PO BID Qty: 36 RF: 0 Continued sumatriptan succinate [Imitrex] 100 mg Tablet 100 mg PO Q2H PRN (Reason: MIGRAINE) RF: 0 hydrochlorothiazide 12.5 mg Tablet 12.5 mg PO DAILY RF: 0 acetaminophen 500 mg Tablet 1,000 mg PO BID PRN (Reason: HIP PAIN) RF: 0 melatonin 12 mg Tablet 24 mg PO QHS RF: 0 Referrals / Follow Up: JOSE MCCARTNEY [Other] - Within 2 Weeks Ignacio Quinonez DO [STAFF PHYSICIAN] - Within 2 Weeks Disposition Disposition (needs filled in before D/C Order can be placed): Home, Self Care Charges/Coding Addendum Addendum: Dr. Ford: I personally reviewed the chart and examined the patient, and agree with the above findings. 75-year-old female presents to the hospital after mechanical fall. She landed on her left side and had a left intertrochanteric femur fracture that will be repaired today. She did have a similar fracture on the right that had been repaired earlier this year. She does endorse having a history of osteoporosis and the cortical bone thickness on x-rays does appear little thin. Unsure as to why she has not been started on a bisphosphonate. We will plan to start bisphosphonate about a week after discharge. 12/03/2020: Feeling better today, pain is little bit better controlled but she does have some nausea after surgery. She is doing well from physical therapy standpoint and has been accepted to SNF. If she remains stable in the morning and is doing a bit better, can plan for discharge at that time. 12/04/2020: Doing well today, pain is better controlled however she is little bit pale and she was found to have a hemoglobin of 6.8. Will transfuse 1 unit and monitor, will recheck hemoglobin this evening and then again tomorrow morning. Continue with PT/OT. Discharge plan is for SNF. 12/05/2020: Doing well today, hemoglobin is stable. She will need to be discharged tomorrow morning once a statin at the SNF is better but she will go tomorrow. I do recommend that she is on a bisphosphonate in about a week for her osteoporosis. We will also continue with her Eliquis for duration recommended by orthopedic surgery. She will need to follow-up with them in about 2 weeks. 12/06/2020: Doing well, had x-rays done of her left foot yesterday piece of food tray fell on she was complaining of pain. There is no fracture identified. Hemoglobin has remained stable. Discussed with her the plan for discharge today and she expressed understanding of the risk benefits of going to SNF and would like to go to SNF today. Visit Charges Inpatient E&M: 04276 Disch Hosp
== END 2020-12-06 13:40 | disposition skilled nursing facility (03) | DRG 480 ==
LOC: ED 16:11 → MS3 16:13
PROVIDERS: Nurse Practitioner Family; Orthopaedic Surgery; Physician Assistant; Admitting Provider Internal Medicine; Emergency Provider Emergency Medicine; Visit Provider Family Medicine
PROC: 0QS706Z Reposition Left Upper Femur with Intramedullary Internal Fixation Device, Open Approach (ICD-10-PCS; principal; 2020-12-02 13:30)
DX: S72.142A Displaced intertrochanteric fracture of left femur, initial encounter for closed fracture (principal); E43 Unspecified severe protein-calorie malnutrition; Z68.1 Body mass index [BMI] 19.9 or less, adult; D64.9 Anemia, unspecified; Z20.822 Contact with and (suspected) exposure to COVID-19; S50.312A Abrasion of left elbow, initial encounter; I10 Essential (primary) hypertension; R00.0 Tachycardia, unspecified; H35.30 Unspecified macular degeneration; G47.00 Insomnia, unspecified; M81.0 Age-related osteoporosis without current pathological fracture; E55.9 Vitamin D deficiency, unspecified; F17.210 Nicotine dependence, cigarettes, uncomplicated; W10.1XXA Fall (on)(from) sidewalk curb, initial encounter; Y93.9 Activity, unspecified; Y92.511 Restaurant or cafe as the place of occurrence of the external cause; Y99.9 Unspecified external cause status
CPT/HCPCS: 36415; 71045; 71250; 73501; 73502; 73552; 73590; 76000; 80048; 80053; 82306; 84100; 84443; 85014; 85018; 85025; 85610; 85730; 86850; 86900; 86901; 86920; 86922; 87426; 93005; 97110; 97162; 97166; 97530; 97535; 97803; 99251; 99284; C1713; J7040; J7120; P9016; A4216; G0463; J2405